=== PATIENT | male | born 1935 | race Caucasian/White ===

== ENCOUNTER 2020-10-01 06:01 | Inpatient (IN) ==
[2020-10-01] MEDS ORDERED: Ringers Solution, Lactated 1,000 ML IVC SCH ×2 (06:30→07:00)
[2020-10-01] MEDS ORDERED: Vancomycin 1,500 MG/265 ML IV.SOLN IVPB ONE (06:30)
[2020-10-01] MEDS ORDERED: Lidocaine -MPF 2% 2 ML VIAL ONE ×2 (06:32→06:59)
[2020-10-01] MEDS ORDERED: Ondansetron 4 MG/2 ML VIAL ONE (06:32)
[2020-10-01] MEDS ORDERED: *HR* Succinylcholine 200 MG/10 ML VIAL IVP ONE (06:32)
[2020-10-01] MEDS ORDERED: *HR* Rocuronium Bromide 50 MG/5 ML VIAL ONE ×3 (06:32→15:23)
[2020-10-01] MEDS ORDERED: Lidocaine HCL 4 ML Topical Solution (Laryng-O-Jet Kit Sterile Pak) TP ONE (06:32)
[2020-10-01] MEDS ORDERED: Heparin 1,000 UNITS/500 mL 1,000 ML ONE (06:36)
[2020-10-01] MEDS ORDERED: Heparin 1,000 UNITS/500 mL 500 ML ONE (06:48)
[2020-10-01] MEDS ORDERED: *HR* FentaNYL (PF) 100 MCG/2 ML VIAL ONE ×3 (06:51→12:19)
[2020-10-01] MEDS ORDERED: *HR* Propofol 200 MG/20 ML VIAL IVP ONE (06:52)
[2020-10-01] MEDS ORDERED: *HR* Vasopressin 20 UNIT/ML VIAL ONE (06:55)
[2020-10-01] MEDS ORDERED: Albumin Human 5% 25.0 GM/500 ML IV.SOLN ONE (06:55)
[2020-10-01] MEDS ORDERED: *HR* Remifentanil 2 MG VIAL IVP ONE (06:59)
[2020-10-01] MEDS ORDERED: *HR* Metoprolol 5 MG/5 ML VIAL IVP PRN (07:00)
[2020-10-01] MEDS ORDERED: *HR* HYDROmorphone (PF) 1 MG/ML SYRINGE IVP PRN (07:00)
[2020-10-01] MEDS ORDERED: Ondansetron 4 MG/2 ML VIAL IVP PRN ×2 (07:00→13:35)
[2020-10-01] MEDS ORDERED: *HR* Phenylephrine 10 MG/ML VIAL ONE (07:05)
[2020-10-01] MEDS ORDERED: CeFAZolin Syr 2,000MG/20 ML 2,000 MG/20 ML SYRINGE IVPB ONE (07:32)
[2020-10-01] MEDS ORDERED: *HR* Norepinephrine 4 MG/4 ML VIAL IVC ONE (07:41)
[2020-10-01] MEDS ORDERED: Norepinephrine 4 MG/254 ML IV.SOLN IVC SCH (07:45)
[2020-10-01] MEDS ORDERED: Vancomycin 1,000 MG, Sodium Chloride IRRigation 1,000 ML IR ONE (07:45)
[2020-10-01] MEDS ORDERED: Vancomycin 1,000 MG VIAL ONE ×2 (08:12→11:31)
[2020-10-01] MEDS ORDERED: NiCARdipine 2.5 MG/10 ML Syringe IVPB ONE (08:20)
[2020-10-01] MEDS ORDERED: EPHEDrine 50 MG/ML VIAL ONE (08:47)
[2020-10-01 09:03] LABS: ABG Base Excess -3 mEq/L (-2 to 3); ABG Chloride 109 mEq/L (98-107); ABG Glucose 149 mg/dL (60-95); ABG HCO3 24 mEq/L (21-27); ABG Ionized Calcium 1.13 mmol/L (1.15-1.35); ABG Oxygen Saturation 98 % (95-98); ABG PCO2 47 mmHg (35-45); ABG PH 7.32 pH Units (7.32-7.45); ABG PO2 113 mmHg (85-104); ABG TCO2 25 mEq/L (20-26)
[2020-10-01] MEDS ORDERED: *HR* Midazolam HCl 2 MG/2 ML VIAL ONE ×4 (10:40→12:20)
[2020-10-01] MEDS ORDERED: EPINEPHrine 1 MG/ML VIAL ONE ×3 (10:54→11:21)
[2020-10-01 11:16] LABS: ABG Base Excess -11 mEq/L (-2 to 3); ABG Chloride 108 mEq/L (98-107); ABG Glucose 433 mg/dL (60-95); ABG HCO3 18 mEq/L (21-27); ABG Oxygen Saturation 100 % (95-98); ABG PCO2 50 mmHg (35-45); ABG PH 7.15 pH Units (7.32-7.45); ABG PO2 257 mmHg (85-104); ABG TCO2 19 mEq/L (20-26)
[2020-10-01 11:45] LABS: ABG Base Excess -8 mEq/L (-2 to 3); ABG Chloride 108 mEq/L (98-107); ABG Glucose 357 mg/dL (60-95); ABG HCO3 22 mEq/L (21-27); ABG Ionized Calcium 1.16 mmol/L (1.15-1.35); ABG Oxygen Saturation 100 % (95-98); ABG PCO2 68 mmHg (35-45); ABG PH 7.11 pH Units (7.32-7.45); ABG PO2 284 mmHg (85-104); ABG TCO2 24 mEq/L (20-26)
[2020-10-01] MEDS ORDERED: Naloxone 0.4 MG/ML INJ IVP PRN (13:35)
[2020-10-01] MEDS ORDERED: *HR* Labetalol 20 MG/4 ML SYRINGE IVP PRN (13:35)
[2020-10-01] MEDS ORDERED: Dextrose Gel 15 GM/37.5 ML TUBE PO PRN ×2 (13:35)
[2020-10-01] MEDS ORDERED: D5% in Water 1,000 ML IVC PRN (13:35)
[2020-10-01] MEDS ORDERED: 0.9 % Sodium Chloride 1,000 ML IVC SCH ×2 (13:35→17:18)
[2020-10-01] MEDS ORDERED: *HR* Dextrose 50 % in Water (Vial) 50 ML VIAL IVP PRN (13:35)
[2020-10-01 13:57] LABS: ABG Base Excess -8 mEq/L (-2 to 3); ABG HCO3 20 mEq/L (21-27); ABG Oxygen Saturation 96 % (95-98); ABG PCO2 50 mmHg (35-45); ABG PH 7.22 pH Units (7.32-7.45); ABG PO2 97 mmHg (85-104); ABG TCO2 22 mEq/L (20-26); Blood Gas VT 650 cc
[2020-10-01] MEDS ORDERED: CeFAZolin 2 GM/120 ML BAG IVPB SCH (14:00)
[2020-10-01] MEDS ORDERED: Artificial Tears SOLN 15 ML BOTTLE BOTH EYES PRN (15:56)
[2020-10-01] MEDS ORDERED: 0.9 % Sodium Chloride 1,000 ML IVC ONE ×2 (15:58→17:17)
[2020-10-01] MEDS ORDERED: Lidocaine Viscous Oral Soln 15 ML SOLUTION ONE (16:00)
[2020-10-01] MEDS: CeFAZolin 2 GM/120 ML BAG IVPB SCH ×2 (16:30→23:44)
[2020-10-01] MEDS: FentaNYL (PF) 1,000 MCG/100 ML IV.SOLN IVC SCH ×2 (16:31→22:07)
[2020-10-01] MEDS: Norepinephrine 4 MG/254 ML IV.SOLN IVC SCH ×2 (16:34→18:52)
[2020-10-01] MEDS: Phenylephrine 10 MG in 0.9 % Sodium Chloride 250 ML IVC SCH ×2 (16:37→19:59)
[2020-10-01 16:43] LABS: Basophils # 0.1 K/mcL (0.0-0.2); Basophils % 0.4 %; Eosinophils % 0.1 %; Hematocrit 54.8 % (37.5-50.1); Hemoglobin 18.3 g/dL (12.9-16.9); Immature Granulocytes % 1.2 % (0-4); Lymphocytes # 1.6 K/mcL (0.6-4.6); Lymphocytes % 8.2 %; Mean Corpuscular HGB Conc 33.4 g/dL (31.6-35.5); Mean Corpuscular Hemoglobin 30.2 pg (28.0-33.3); Mean Corpuscular Volume 90.6 fL (83.0-100.0); Mean Platelet Volume 11.8 fL (9.4-12.4); Monocytes # 1.6 K/mcL (0.0-1.3); Monocytes % 8.5 %; Neutrophils # 15.6 K/mcL (1.6-8.9); Platelet Count 137 K/mcL (140-400); Red Blood Count 6.05 M/mcL (4.19-5.50); Red Cell Distribution Width 14.1 % (11.5-14.5); Segmented Neutrophils % 81.6 %; White Blood Count 19.1 K/mcL (4.3-11.1)
[2020-10-01 16:45] LABS: VBG Ionized Calcium 1.13 mmol/L (1.15-1.35)
[2020-10-01] MEDS: Artificial Tears SOLN 15 ML BOTTLE BOTH EYES SCH ×3 (16:46→23:44)
[2020-10-01 16:50] LABS: INR 1.2; Prothrombin Time 13.5 Seconds (9.4-12.1)
[2020-10-01 16:52] LABS: Activated Partial Thrombo Time 29.3 Seconds (26.0-36.0)
[2020-10-01 17:14] LABS: Albumin/Globulin Ratio 1.6 (1.1-2.2); Bilirubin,Total 0.5 mg/dL (0.3-1.0); Calcium 8.2 mg/dL (8.6-10.3); Globulin 1.9 g/dL (2.4-3.5); Magnesium 1.7 mg/dL (1.6-2.6); Phosphorous 6.7 mg/dL (2.7-4.5); Potassium 5.6 mEq/L (3.5-5.1); Total Protein 4.9 g/dL (6.4-8.9); Troponin I 0.06 ng/mL (< 0.04)
[2020-10-01] MEDS ORDERED: Calcium Gluconate 1gm/50mL 1 GM/50 ML BAG IVPB ONE (17:16)
[2020-10-01] MEDS ORDERED: Dexmedetomidine HCl 400 MCG/100 ML MLS IVC ONE (17:21)
[2020-10-01] MEDS: Dexmedetomidine HCl 400 MCG/100 ML MLS IVC SCH (17:27)
[2020-10-01 17:36] LABS: ABG Base Excess -14 mEq/L (-2 to 3); ABG HCO3 15 mEq/L (21-27); ABG Oxygen Saturation 94 % (95-98); ABG PCO2 42 mmHg (35-45); ABG PH 7.15 pH Units (7.32-7.45); ABG PO2 89 mmHg (85-104); ABG TCO2 16 mEq/L (20-26); Blood Gas VT 550 cc
[2020-10-01] MEDS ORDERED: *HR* Metoprolol 5 MG/5 ML VIAL IVP SCH (18:00)
[2020-10-01] MEDS ORDERED: Famotidine 20 MG/2 ML VIAL IVP SCH (18:00)
[2020-10-01] MEDS: Sodium Bicarbonate 50 MEQ in 0.45 % Sodium Chloride 1,000 ML IVC SCH (18:16)
[2020-10-01] MEDS: Pantoprazole 40 MG VIAL IVP SCH (18:17)
[2020-10-01] MEDS: 0.9 % Sodium Chloride 1,000 ML IVC SCH ×2 (18:34→18:53)
[2020-10-01] MEDS: Insulin LISPRO 300 UNITS/3 ML VIAL SUBQ SCH ×2 (18:44→23:44)
[2020-10-01] MEDS: Chlorhexidine Rinse 15 ML MOUTHWASH MM SCH (19:11)
[2020-10-01 19:46] LABS: Basophils # 0.1 K/mcL (0.0-0.2); Basophils % 0.5 %; Hematocrit 51.1 % (37.5-50.1); Immature Granulocytes % 2.1 % (0-4); Lymphocytes % 5.4 %; Mean Corpuscular HGB Conc 32.7 g/dL (31.6-35.5); Mean Corpuscular Hemoglobin 29.2 pg (28.0-33.3); Mean Corpuscular Volume 89.3 fL (83.0-100.0); Mean Platelet Volume 11.4 fL (9.4-12.4); Monocytes # 1.3 K/mcL (0.0-1.3); Monocytes % 6.9 %; Neutrophils # 16.1 K/mcL (1.6-8.9); Nucleated Red Blood Cells 0.1 /100 WBC (0); Platelet Count 119 K/mcL (140-400); Red Blood Count 5.72 M/mcL (4.19-5.50); Segmented Neutrophils % 85.1 %; White Blood Count 18.9 K/mcL (4.3-11.1)
[2020-10-01 19:47] LABS: Hemoglobin 16.7 g/dL (12.9-16.9)
[2020-10-01 20:00] LABS: ABG Base Excess -9 mEq/L (-2 to 3); ABG HCO3 18 mEq/L (21-27); ABG Oxygen Saturation 95 % (95-98); ABG PCO2 43 mmHg (35-45); ABG PH 7.23 pH Units (7.32-7.45); ABG PO2 92 mmHg (85-104); ABG TCO2 19 mEq/L (20-26); Blood Gas Modality AF; Blood Gas VT 550 cc
[2020-10-01 20:03] LABS: INR 1.2; Prothrombin Time 13.8 Seconds (9.4-12.1)
[2020-10-01 20:06] LABS: Activated Partial Thrombo Time 27.8 Seconds (26.0-36.0)
[2020-10-01 20:33] LABS: Calcium 7.9 mg/dL (8.6-10.3); Potassium 5.3 mEq/L (3.5-5.1); Troponin I 0.07 ng/mL (< 0.04)
[2020-10-01] MEDS ORDERED: Calcium Gluconate 1gm/50mL 1 GM/50 ML BAG IVPB PRN (20:55)
[2020-10-01] MEDS: Norepinephrine 8 MG in 0.9 % Sodium Chloride 250 ML IVC SCH (21:19)
[2020-10-01] MEDS: Calcium Gluconate 1gm/50mL 2 GM/100 ML BAG IVPB PRN (22:07)
[2020-10-02 00:19] LABS: Basophils % 0.2 %; Mean Corpuscular HGB Conc 33.2 g/dL (31.6-35.5); Monocytes % 8.5 %
[2020-10-02 00:21] LABS: Hematocrit 35.8 % (37.5-50.1); Immature Granulocytes % 1.5 % (0-4); Immature Platelets 4.3 % (1.1-6.1); Lymphocytes # 0.9 K/mcL (0.6-4.6); Lymphocytes % 6.6 %; Mean Corpuscular Hemoglobin 29.7 pg (28.0-33.3); Mean Corpuscular Volume 89.3 fL (83.0-100.0); Mean Platelet Volume 11.5 fL (9.4-12.4); Monocytes # 1.2 K/mcL (0.0-1.3); Neutrophils # 11.8 K/mcL (1.6-8.9); Nucleated Red Blood Cells 0.1 /100 WBC (0); Platelet Count 94 K/mcL (140-400); Red Blood Count 4.01 M/mcL (4.19-5.50); Red Cell Distribution Width 13.8 % (11.5-14.5); Segmented Neutrophils % 83.2 %; White Blood Count 14.2 K/mcL (4.3-11.1)
[2020-10-02 00:23] LABS: Hemoglobin 11.9 g/dL (12.9-16.9)
[2020-10-02 00:31] LABS: INR 1.2; Prothrombin Time 13.5 Seconds (9.4-12.1)
[2020-10-02] MEDS: Dexmedetomidine HCl 400 MCG/100 ML MLS IVC SCH ×6 (00:33→23:46)
[2020-10-02 01:07] LABS: ABG Base Excess -8 mEq/L (-2 to 3); ABG HCO3 19 mEq/L (21-27); ABG Oxygen Saturation 95 % (95-98); ABG PCO2 43 mmHg (35-45); ABG PH 7.25 pH Units (7.32-7.45); ABG PO2 85 mmHg (85-104); ABG TCO2 20 mEq/L (20-26); Blood Gas Modality AF; Blood Gas VT 550 cc
[2020-10-02] MEDS: Norepinephrine 8 MG in 0.9 % Sodium Chloride 250 ML IVC SCH ×5 (02:13→22:37)
[2020-10-02] MEDS: Phenylephrine 10 MG in 0.9 % Sodium Chloride 250 ML IVC SCH (02:13)
[2020-10-02 03:17] LABS: Calcium 7.8 mg/dL (8.6-10.3); Potassium 5.7 mEq/L (3.5-5.1)
[2020-10-02] MEDS ORDERED: Insulin Human Regular 10 UNIT in 0.9 % Sodium Chloride 10 ML IV ONE (03:44)
[2020-10-02] MEDS ORDERED: *HR* Dextrose 50 % in Water (Vial) 50 ML VIAL IVP ONE (03:48)
[2020-10-02] MEDS ORDERED: Albuterol Neb 7.5 MG, Sodium Chloride for inhalation 12 ML IH ONE (03:50)
[2020-10-02 04:12] LABS: Basophils # 0.1 K/mcL (0.0-0.2); Basophils % 0.3 %; Hematocrit 48.1 % (37.5-50.1); Immature Granulocytes % 1.4 % (0-4); Lymphocytes # 1.4 K/mcL (0.6-4.6); Lymphocytes % 7.4 %; Mean Corpuscular HGB Conc 33.3 g/dL (31.6-35.5); Mean Corpuscular Hemoglobin 28.9 pg (28.0-33.3); Mean Platelet Volume 11.7 fL (9.4-12.4); Monocytes # 1.7 K/mcL (0.0-1.3); Monocytes % 8.9 %; Neutrophils # 15.7 K/mcL (1.6-8.9); Platelet Count 138 K/mcL (140-400); Red Blood Count 5.53 M/mcL (4.19-5.50); Red Cell Distribution Width 14.1 % (11.5-14.5); White Blood Count 19.1 K/mcL (4.3-11.1)
[2020-10-02 04:18] LABS: VBG Ionized Calcium 1.04 mmol/L (1.15-1.35)
[2020-10-02 04:22] LABS: INR 1.1; Prothrombin Time 13.1 Seconds (9.4-12.1)
[2020-10-02 04:24] LABS: Activated Partial Thrombo Time 26.7 Seconds (26.0-36.0)
[2020-10-02 04:30] LABS: Calcium 7.8 mg/dL (8.6-10.3); Potassium 5.7 mEq/L (3.5-5.1)
[2020-10-02] MEDS: Sodium Bicarbonate 50 MEQ in 0.45 % Sodium Chloride 1,000 ML IVC SCH (04:30)
[2020-10-02] MEDS: Calcium Gluconate 1gm/50mL 2 GM/100 ML BAG IVPB PRN (04:30)
[2020-10-02] MEDS: Artificial Tears SOLN 15 ML BOTTLE BOTH EYES SCH ×6 (04:42→23:50)
[2020-10-02 05:06] LABS: ABG Base Excess -8 mEq/L (-2 to 3); ABG HCO3 19 mEq/L (21-27); ABG Oxygen Saturation 94 % (95-98); ABG PCO2 42 mmHg (35-45); ABG PH 7.26 pH Units (7.32-7.45); ABG PO2 81 mmHg (85-104); ABG TCO2 20 mEq/L (20-26); Blood Gas Modality AF; Blood Gas VT 550 cc
[2020-10-02] MEDS: Pantoprazole 40 MG VIAL IVP SCH ×2 (05:38→17:57)
[2020-10-02] MEDS: Insulin LISPRO 300 UNITS/3 ML VIAL SUBQ SCH ×4 (05:39→23:51)
[2020-10-02 05:46] LABS: Magnesium 1.5 mg/dL (1.6-2.6)
[2020-10-02] MEDS ORDERED: Albuterol 2.5 MG/3 ML NEBULIZER ONE (05:49)
[2020-10-02 05:54] LABS: Troponin I 0.13 ng/mL (< 0.04)
[2020-10-02] MEDS: FentaNYL (PF) 1,000 MCG/100 ML IV.SOLN IVC SCH ×3 (06:11→20:23)
[2020-10-02] MEDS: Chlorhexidine Rinse 15 ML MOUTHWASH MM SCH ×2 (07:27→20:16)
[2020-10-02] MEDS: Sodium Bicarbonate 150 MEQ in D5% in Water 1,000 ML IVC SCH ×2 (08:27→17:57)
[2020-10-02 08:42] LABS: Basophils # 0.1 K/mcL (0.0-0.2); Basophils % 0.2 %; Hematocrit 46.9 % (37.5-50.1); Hemoglobin 15.5 g/dL (12.9-16.9); Lymphocytes # 1.7 K/mcL (0.6-4.6); Lymphocytes % 8.2 %; Mean Corpuscular Hemoglobin 29.9 pg (28.0-33.3); Mean Corpuscular Volume 90.5 fL (83.0-100.0); Mean Platelet Volume 11.1 fL (9.4-12.4); Monocytes # 2.1 K/mcL (0.0-1.3); Monocytes % 10.4 %; Neutrophils # 16.4 K/mcL (1.6-8.9); Nucleated Red Blood Cells 0.1 /100 WBC (0); Platelet Count 126 K/mcL (140-400); Red Blood Count 5.18 M/mcL (4.19-5.50); Red Cell Distribution Width 14.3 % (11.5-14.5); Segmented Neutrophils % 80.2 %; White Blood Count 20.5 K/mcL (4.3-11.1)
[2020-10-02 08:45] LABS: INR 1.1; Prothrombin Time 12.9 Seconds (9.4-12.1)
[2020-10-02 08:47] LABS: Activated Partial Thrombo Time 27.2 Seconds (26.0-36.0)
[2020-10-02 08:57] LABS: Magnesium 1.9 mg/dL (1.6-2.6); Potassium 4.7 mEq/L (3.5-5.1)
[2020-10-02] MEDS: SODIUM ZIRCONIUM CYCLOSILICATE 5 GM POWD.PACK PO SCH (11:13)
[2020-10-02 12:28] LABS: Basophils % 0.2 %; Hematocrit 44.1 % (37.5-50.1); Hemoglobin 14.2 g/dL (12.9-16.9); Lymphocytes # 1.6 K/mcL (0.6-4.6); Mean Corpuscular HGB Conc 32.2 g/dL (31.6-35.5); Mean Corpuscular Hemoglobin 29.1 pg (28.0-33.3); Mean Corpuscular Volume 90.4 fL (83.0-100.0); Mean Platelet Volume 11.4 fL (9.4-12.4); Monocytes # 1.8 K/mcL (0.0-1.3); Monocytes % 9.3 %; Neutrophils # 15.9 K/mcL (1.6-8.9); Platelet Count 126 K/mcL (140-400); Red Blood Count 4.88 M/mcL (4.19-5.50); Red Cell Distribution Width 14.4 % (11.5-14.5); Segmented Neutrophils % 81.5 %; White Blood Count 19.5 K/mcL (4.3-11.1)
[2020-10-02 12:36] LABS: VBG Ionized Calcium 1.09 mmol/L (1.15-1.35)
[2020-10-02 12:47] LABS: Sodium, Urine 52.6 mEq/L
[2020-10-02 12:48] LABS: Calcium 7.7 mg/dL (8.6-10.3); Magnesium 1.7 mg/dL (1.6-2.6); Phosphorous 6.5 mg/dL (2.7-4.5); Potassium 4.8 mEq/L (3.5-5.1)
[2020-10-02] MEDS: *HR* Midazolam HCl 2 MG/2 ML VIAL IVP PRN ×3 (16:04→23:46)
[2020-10-02] MEDS: *HR* Heparin 5,000 UNIT/ML VIAL SQ SCH (17:57)
[2020-10-02] MEDS ORDERED: *HR* Heparin 5,000 UNIT/ML VIAL SQ SCH (18:00)
[2020-10-02 18:48] LABS: Calcium 7.6 mg/dL (8.6-10.3); Magnesium 1.7 mg/dL (1.6-2.6); Potassium 4.9 mEq/L (3.5-5.1)
[2020-10-02 22:04] LABS: Calcium 7.3 mg/dL (8.6-10.3); Magnesium 1.8 mg/dL (1.6-2.6); Potassium 4.6 mEq/L (3.5-5.1)
[2020-10-03 03:48] LABS: VBG Ionized Calcium 1.01 mmol/L (1.15-1.35)
[2020-10-03 03:54] LABS: Eosinophils % 0.1 %
[2020-10-03 03:56] LABS: Basophils % 0.3 %; Hematocrit 36.6 % (37.5-50.1); Immature Granulocytes % 0.7 % (0-4); Immature Platelets 5.4 % (1.1-6.1); Lymphocytes # 1.5 K/mcL (0.6-4.6); Lymphocytes % 9.9 %; Mean Corpuscular HGB Conc 32.8 g/dL (31.6-35.5); Mean Corpuscular Hemoglobin 29.3 pg (28.0-33.3); Mean Corpuscular Volume 89.3 fL (83.0-100.0); Mean Platelet Volume 11.4 fL (9.4-12.4); Monocytes # 1.3 K/mcL (0.0-1.3); Neutrophils # 11.9 K/mcL (1.6-8.9); Red Cell Distribution Width 14.3 % (11.5-14.5); White Blood Count 14.9 K/mcL (4.3-11.1)
[2020-10-03] MEDS: *HR* Midazolam HCl 2 MG/2 ML VIAL IVP PRN ×5 (04:06→23:17)
[2020-10-03] MEDS: FentaNYL (PF) 1,000 MCG/100 ML IV.SOLN IVC SCH ×4 (04:06→19:29)
[2020-10-03] MEDS: Sodium Bicarbonate 150 MEQ in D5% in Water 1,000 ML IVC SCH ×2 (04:07→12:38)
[2020-10-03] MEDS: Artificial Tears SOLN 15 ML BOTTLE BOTH EYES SCH ×6 (04:08→23:18)
[2020-10-03 04:09] LABS: Calcium 7.2 mg/dL (8.6-10.3); Magnesium 1.7 mg/dL (1.6-2.6); Potassium 4.6 mEq/L (3.5-5.1)
[2020-10-03 05:03] LABS: Platelet Count 96 K/mcL (140-400)
[2020-10-03] MEDS: Insulin LISPRO 300 UNITS/3 ML VIAL SUBQ SCH ×4 (05:22→23:18)
[2020-10-03] MEDS: Pantoprazole 40 MG VIAL IVP SCH ×2 (05:26→17:48)
[2020-10-03] MEDS: *HR* Heparin 5,000 UNIT/ML VIAL SQ SCH ×2 (05:32→17:47)
[2020-10-03 05:59] LABS: ABG Base Excess -2 mEq/L (-2 to 3); ABG HCO3 25 mEq/L (21-27); ABG Oxygen Saturation 87 % (95-98); ABG PCO2 50 mmHg (35-45); ABG PO2 60 mmHg (85-104); ABG TCO2 26 mEq/L (20-26); Blood Gas Modality ASSIST CONTROL; Blood Gas VT 550 cc
[2020-10-03] MEDS: Calcium Gluconate 1gm/50mL 2 GM/100 ML BAG IVPB PRN ×2 (06:08→18:02)
[2020-10-03] MEDS: Dexmedetomidine HCl 400 MCG/100 ML MLS IVC SCH ×4 (06:09→21:20)
[2020-10-03] MEDS: Chlorhexidine Rinse 15 ML MOUTHWASH MM SCH ×2 (08:17→21:20)
[2020-10-03] MEDS: SODIUM ZIRCONIUM CYCLOSILICATE 5 GM POWD.PACK PO SCH (08:17)
[2020-10-03] MEDS: Norepinephrine 8 MG in 0.9 % Sodium Chloride 250 ML IVC SCH (10:02)
[2020-10-03 10:07] LABS: Hematocrit 33.9 % (37.5-50.1); Hemoglobin 11.3 g/dL (12.9-16.9)
[2020-10-03 15:54] LABS: VBG Ionized Calcium 1.05 mmol/L (1.15-1.35)
[2020-10-03 16:14] LABS: Calcium 7.6 mg/dL (8.6-10.3); Potassium 4.4 mEq/L (3.5-5.1)
[2020-10-04] MEDS: Dexmedetomidine HCl 400 MCG/100 ML MLS IVC SCH ×2 (01:09→05:58)
[2020-10-04] MEDS: FentaNYL (PF) 1,000 MCG/100 ML IV.SOLN IVC SCH (02:17)
[2020-10-04] MEDS: Artificial Tears SOLN 15 ML BOTTLE BOTH EYES SCH ×5 (03:34→20:54)
[2020-10-04] MEDS: Norepinephrine 8 MG in 0.9 % Sodium Chloride 250 ML IVC SCH (03:34)
[2020-10-04] MEDS: Sodium Bicarbonate 150 MEQ in D5% in Water 1,000 ML IVC SCH ×2 (03:34→18:31)
[2020-10-04 03:41] LABS: Eosinophils % 0.6 %; Hematocrit 32.2 % (37.5-50.1); Hemoglobin 10.7 g/dL (12.9-16.9); Mean Corpuscular HGB Conc 33.2 g/dL (31.6-35.5); Mean Corpuscular Hemoglobin 29.3 pg (28.0-33.3); Mean Corpuscular Volume 88.2 fL (83.0-100.0); Mean Platelet Volume 11.5 fL (9.4-12.4); Red Blood Count 3.65 M/mcL (4.19-5.50)
[2020-10-04 03:43] LABS: Basophils % 0.3 %; Eosinophils # 0.1 K/mcL (0.0-0.6); Immature Platelets 5.5 % (1.1-6.1); Lymphocytes # 1.5 K/mcL (0.6-4.6); Neutrophils # 9.9 K/mcL (1.6-8.9); Red Cell Distribution Width 14.2 % (11.5-14.5); Segmented Neutrophils % 78.1 %; White Blood Count 12.7 K/mcL (4.3-11.1)
[2020-10-04 03:44] LABS: Platelet Count 92 K/mcL (140-400)
[2020-10-04 03:46] LABS: VBG Ionized Calcium 1.01 mmol/L (1.15-1.35)
[2020-10-04] MEDS: *HR* Midazolam HCl 2 MG/2 ML VIAL IVP PRN (03:52)
[2020-10-04 03:59] LABS: Calcium 7.6 mg/dL (8.6-10.3); Potassium 4.5 mEq/L (3.5-5.1)
[2020-10-04] MEDS: Calcium Gluconate 1gm/50mL 2 GM/100 ML BAG IVPB PRN ×4 (04:27→22:41)
[2020-10-04 04:46] LABS: Magnesium 2.1 mg/dL (1.6-2.6)
[2020-10-04 04:57] LABS: ABG Base Excess 1 mEq/L (-2 to 3); ABG HCO3 26 mEq/L (21-27); ABG Oxygen Saturation 86 % (95-98); ABG PCO2 42 mmHg (35-45); ABG PO2 51 mmHg (85-104); ABG TCO2 27 mEq/L (20-26); Blood Gas Modality ASSIST CONTROL; Blood Gas VT 550 cc
[2020-10-04] MEDS: Pantoprazole 40 MG VIAL IVP SCH ×2 (05:56→17:32)
[2020-10-04] MEDS: *HR* Heparin 5,000 UNIT/ML VIAL SQ SCH ×2 (05:56→17:32)
[2020-10-04] MEDS: Insulin LISPRO 300 UNITS/3 ML VIAL SUBQ SCH ×3 (06:00→17:43)
[2020-10-04] MEDS: Chlorhexidine Rinse 15 ML MOUTHWASH MM SCH ×2 (08:40→20:52)
[2020-10-04 11:48] LABS: VBG Ionized Calcium 1.03 mmol/L (1.15-1.35)
[2020-10-04 12:07] LABS: Calcium 7.8 mg/dL (8.6-10.3); Potassium 4.8 mEq/L (3.5-5.1)
[2020-10-04] MEDS: *HR* Metoprolol 5 MG/5 ML VIAL IVP PRN ×2 (12:08→20:53)
[2020-10-04] MEDS: DilTIAZem 50 MG/50 ML IV.SOLN IVC SCH ×4 (12:16→22:38)
[2020-10-04 13:37] LABS: Magnesium 2.1 mg/dL (1.6-2.6)
[2020-10-04] MEDS ORDERED: *HR* Metoprolol 5 MG/5 ML VIAL IVP ONE (15:07)
[2020-10-04] MEDS: Phenylephrine 10 MG in 0.9 % Sodium Chloride 250 ML IVC SCH (17:49)
[2020-10-04 20:57] LABS: VBG Ionized Calcium 1.04 mmol/L (1.15-1.35)
[2020-10-04 21:28] LABS: Alanine Aminotransferase < 3 Units/L (7-52); Albumin 2.2 g/dL (3.5-5.7); Alkaline Phosphatase 65 Units/L (34-104); Aspartate Amino Transferase 45 Units/L (13-39); BUN/Creatinine Ratio 10 (6-26); Bilirubin,Total 0.4 mg/dL (0.3-1.0); Blood Urea Nitrogen 73 mg/dL (8-23); Calcium 7.9 mg/dL (8.6-10.3); Carbon Dioxide 30 mEq/L (23-29); Chloride 96 mEq/L (98-107); Globulin 2.1 g/dL (2.4-3.5); Glucose 180 mg/dL (70-105); Magnesium 2.1 mg/dL (1.6-2.6); Osmolality,Calculated 312 (280-300); Potassium 4.8 mEq/L (3.5-5.1); Sodium 138 mEq/L (136-145); Total Protein 4.3 g/dL (6.4-8.9); eGFR For African Americans 9 (> 60); eGFR For Non-African Americans 7 (> 60)
[2020-10-05] MEDS: Artificial Tears SOLN 15 ML BOTTLE BOTH EYES SCH ×3 (00:27→08:26)
[2020-10-05] MEDS: Insulin LISPRO 300 UNITS/3 ML VIAL SUBQ SCH ×5 (00:32→20:00)
[2020-10-05] MEDS: DilTIAZem 50 MG/50 ML IV.SOLN IVC SCH ×6 (02:16→22:19)
[2020-10-05] MEDS: Dexmedetomidine HCl 400 MCG/100 ML MLS IVC SCH (04:11)
[2020-10-05 05:08] LABS: Basophils % 0.2 %; Eosinophils # 0.1 K/mcL (0.0-0.6); Eosinophils % 0.4 %; Hematocrit 30.6 % (37.5-50.1); Hemoglobin 10.2 g/dL (12.9-16.9); Immature Granulocytes % 0.6 % (0-4); Lymphocytes % 8.1 %; Mean Corpuscular HGB Conc 33.3 g/dL (31.6-35.5); Mean Platelet Volume 11.4 fL (9.4-12.4); Monocytes # 1.1 K/mcL (0.0-1.3); Monocytes % 8.8 %; Platelet Count 112 K/mcL (140-400); Segmented Neutrophils % 81.9 %; White Blood Count 12.2 K/mcL (4.3-11.1)
[2020-10-05 05:11] LABS: VBG Ionized Calcium 1.05 mmol/L (1.15-1.35)
[2020-10-05 05:19] LABS: INR 1.2; Prothrombin Time 14.2 Seconds (9.4-12.1)
[2020-10-05 05:25] LABS: Magnesium 2.2 mg/dL (1.6-2.6); Phosphorous 8.2 mg/dL (2.7-4.5); Potassium 4.6 mEq/L (3.5-5.1)
[2020-10-05] MEDS: Calcium Gluconate 1gm/50mL 2 GM/100 ML BAG IVPB PRN (06:40)
[2020-10-05] MEDS: *HR* Heparin 5,000 UNIT/ML VIAL SQ SCH ×2 (06:42→17:22)
[2020-10-05] MEDS: Pantoprazole 40 MG VIAL IVP SCH ×2 (06:43→17:23)
[2020-10-05] MEDS ORDERED: Heparin 1,000 UNITS/500 mL 500 ML ONE (08:07)
[2020-10-05] MEDS ORDERED: 0.9 % Sodium Chloride 250 ML IVC PRN (08:16)
[2020-10-05] MEDS ORDERED: *HR* Heparin 10,000 UNIT/10 ML VIAL IV PRN (08:16)
[2020-10-05] MEDS: Chlorhexidine Rinse 15 ML MOUTHWASH MM SCH (08:26)
[2020-10-05] MEDS ORDERED: 0.9 % Sodium Chloride 1,000 ML PRIME SCH (08:30)
[2020-10-05] MEDS ORDERED: *HR* Heparin 5,000 UNIT/ML VIAL ONE (08:35)
[2020-10-05] MEDS ORDERED: D10% in Water 500 ML IVC PRN (10:56)
[2020-10-05 11:43] LABS: Hepatitis B Surface Antibody < 3.10 mIU/mL
[2020-10-05 11:54] LABS: Hepatitis B Surface Antigen Nonreactive (Nonreactive)
[2020-10-05] MEDS ORDERED: Bisacodyl 10 MG RECTAL SUPPOSITORY RC ONE (13:43)
[2020-10-05] MEDS: *HR* Metoprolol 5 MG/5 ML VIAL IVP PRN (14:48)
[2020-10-05] MEDS: Phenylephrine 10 MG in 0.9 % Sodium Chloride 250 ML IVC SCH (15:33)
[2020-10-05] MEDS ORDERED: Clinimix 5%-20% SOLUTION 2,000 ML with MVI, adult with vitamin K 10 ML, Sodium Acetat... IVC SCH (17:00)
[2020-10-05] MEDS: Metoprolol 100 MG TABLET PO SCH (19:39)
[2020-10-05] MEDS: lisinopriL 20 MG TABLET PO SCH (19:39)
[2020-10-06] MEDS: Insulin LISPRO 300 UNITS/3 ML VIAL SUBQ SCH ×7 (00:56→23:17)
[2020-10-06 05:11] LABS: Hematocrit 29.8 % (37.5-50.1); Hemoglobin 9.8 g/dL (12.9-16.9); Mean Corpuscular HGB Conc 32.9 g/dL (31.6-35.5); Mean Corpuscular Hemoglobin 29.7 pg (28.0-33.3); Mean Corpuscular Volume 90.3 fL (83.0-100.0); Mean Platelet Volume 11.2 fL (9.4-12.4); Platelet Count 140 K/mcL (140-400); Red Cell Distribution Width 14.1 % (11.5-14.5); White Blood Count 13.3 K/mcL (4.3-11.1)
[2020-10-06 05:17] LABS: Calcium 7.7 mg/dL (8.6-10.3); Magnesium 2.5 mg/dL (1.6-2.6); Phosphorous 8.1 mg/dL (2.7-4.5); Potassium 4.6 mEq/L (3.5-5.1)
[2020-10-06] MEDS: Pantoprazole 40 MG VIAL IVP SCH ×2 (06:07→16:51)
[2020-10-06] MEDS: *HR* Heparin 5,000 UNIT/ML VIAL SQ SCH ×2 (06:07→16:52)
[2020-10-06] MEDS: DilTIAZem 50 MG/50 ML IV.SOLN IVC SCH (06:09)
[2020-10-06] MEDS ORDERED: 0.9 % Sodium Chloride 250 ML IVC PRN ×3 (07:10→17:01)
[2020-10-06] MEDS ORDERED: *HR* Heparin 10,000 UNIT/10 ML VIAL IV PRN (07:10)
[2020-10-06] MEDS ORDERED: 0.9 % Sodium Chloride 1,000 ML PRIME SCH (07:15)
[2020-10-06 07:47] LABS: Alpha 2 Globulin (PEP) 0.54 g/dL (0.48-1.05); Beta Globulin (PEP) 0.51 g/dL (0.48-1.10)
[2020-10-06] MEDS: Metoprolol 100 MG TABLET PO SCH ×2 (09:20→20:15)
[2020-10-06 12:38] LABS: IFE Reflexed IFE Done; Immunoglobulin A 119 mg/dL (68-408); Immunoglobulin G 477 mg/dL (768-1632); Immunoglobulin M 24 mg/dL (35-263)
[2020-10-06] MEDS: lisinopriL 20 MG TABLET PO SCH ×2 (14:40→20:16)
[2020-10-06] MEDS ORDERED: Calcium Acetate 667 MG CAPSULE PO SCH (17:00)
[2020-10-06] MEDS ORDERED: Ondansetron 4 MG/2 ML VIAL IVP PRN (17:01)
[2020-10-06] MEDS ORDERED: D10% in Water 500 ML IVC PRN (17:01)
[2020-10-06] MEDS ORDERED: Naloxone 0.4 MG/ML INJ IVP PRN (17:01)
[2020-10-06] MEDS ORDERED: Calcium Gluconate 1gm/50mL 2 GM/100 ML BAG IVPB PRN (17:01)
[2020-10-06] MEDS ORDERED: Dextrose Gel 15 GM/37.5 ML TUBE PO PRN ×2 (17:01)
[2020-10-06] MEDS ORDERED: *HR* Dextrose 50 % in Water (Vial) 50 ML VIAL IVP PRN (17:01)
[2020-10-06] MEDS ORDERED: D5% in Water 1,000 ML IVC PRN (17:01)
[2020-10-06] MEDS: Dexmedetomidine HCl 400 MCG/100 ML MLS IVC SCH (18:03)
[2020-10-06] MEDS: Sodium Bicarbonate 150 MEQ in D5% in Water 1,000 ML IVC SCH ×4 (19:26→19:28)
[2020-10-06] MEDS ORDERED: Insulin DETEMIR 100 UNIT/ML X5UNITS SUBQ SCH (21:00)
[2020-10-06] MEDS: Insulin DETEMIR 100 UNIT/ML X5UNITS SUBQ SCH (21:46)
[2020-10-07] MEDS: Insulin LISPRO 300 UNITS/3 ML VIAL SUBQ SCH ×5 (03:39→21:00)
[2020-10-07 03:53] LABS: Hematocrit 31.5 % (37.5-50.1); Hemoglobin 10.2 g/dL (12.9-16.9); Mean Corpuscular HGB Conc 32.4 g/dL (31.6-35.5); Mean Corpuscular Hemoglobin 29.2 pg (28.0-33.3); Mean Corpuscular Volume 90.3 fL (83.0-100.0); Platelet Count 179 K/mcL (140-400); Red Blood Count 3.49 M/mcL (4.19-5.50); Red Cell Distribution Width 13.8 % (11.5-14.5); White Blood Count 13.7 K/mcL (4.3-11.1)
[2020-10-07 04:05] LABS: VBG Ionized Calcium 1.04 mmol/L (1.15-1.35)
[2020-10-07 04:15] LABS: Magnesium 2.3 mg/dL (1.6-2.6); Phosphorous 7.7 mg/dL (2.7-4.5); Potassium 4.4 mEq/L (3.5-5.1)
[2020-10-07] MEDS ORDERED: 0.9 % Sodium Chloride 250 ML IVC PRN (07:24)
[2020-10-07] MEDS ORDERED: *HR* Heparin 10,000 UNIT/10 ML VIAL IV PRN (07:24)
[2020-10-07] MEDS: *HR* Glimepiride 2 MG TABLET PO SCH (07:58)
[2020-10-07] MEDS: Metoprolol 100 MG TABLET PO SCH ×2 (07:59→21:04)
[2020-10-07] MEDS: Calcium Acetate 667 MG CAPSULE PO SCH ×3 (07:59→16:20)
[2020-10-07] MEDS: Magnesium Oxide 400 MG TABLET PO SCH (07:59)
[2020-10-07] MEDS ORDERED: *HR* Glimepiride 2 MG TABLET PO SCH (09:00)
[2020-10-07] MEDS ORDERED: Magnesium Oxide 400 MG TABLET PO SCH (09:00)
[2020-10-07] MEDS ORDERED: amLODIPine 5 MG TABLET PO SCH (09:00)
[2020-10-07] MEDS: Dexmedetomidine HCl 400 MCG/100 ML MLS IVC SCH (12:30)
[2020-10-07] MEDS: lisinopriL 20 MG TABLET PO SCH ×2 (13:13→21:04)
[2020-10-07] MEDS: amLODIPine 5 MG TABLET PO SCH (13:13)
[2020-10-07] MEDS ORDERED: *HR* Metoprolol 5 MG/5 ML VIAL IVP ONE (17:52)
[2020-10-07] MEDS: Insulin DETEMIR 100 UNIT/ML X5UNITS SUBQ SCH (21:00)
[2020-10-08] MEDS: Insulin LISPRO 300 UNITS/3 ML VIAL SUBQ SCH ×6 (00:27→23:01)
[2020-10-08] MEDS ORDERED: *HR* Metoprolol 5 MG/5 ML VIAL IVP ONE ×2 (03:08→15:22)
[2020-10-08 05:31] LABS: Basophils # 0.1 K/mcL (0.0-0.2); Basophils % 0.3 %; Eosinophils # 0.2 K/mcL (0.0-0.6); Eosinophils % 1.4 %; Hematocrit 33.4 % (37.5-50.1); Hemoglobin 11.1 g/dL (12.9-16.9); Immature Granulocytes % 2.2 % (0-4); Lymphocytes # 1.4 K/mcL (0.6-4.6); Lymphocytes % 9.9 %; Mean Corpuscular HGB Conc 33.2 g/dL (31.6-35.5); Mean Corpuscular Hemoglobin 29.6 pg (28.0-33.3); Mean Corpuscular Volume 89.1 fL (83.0-100.0); Mean Platelet Volume 11.2 fL (9.4-12.4); Monocytes # 1.6 K/mcL (0.0-1.3); Monocytes % 11.3 %; Neutrophils # 10.8 K/mcL (1.6-8.9); Platelet Count 203 K/mcL (140-400); Red Blood Count 3.75 M/mcL (4.19-5.50); Red Cell Distribution Width 13.4 % (11.5-14.5); Segmented Neutrophils % 74.9 %; White Blood Count 14.4 K/mcL (4.3-11.1)
[2020-10-08 05:35] LABS: Calcium 7.9 mg/dL (8.6-10.3)
[2020-10-08] MEDS: Dexmedetomidine HCl 400 MCG/100 ML MLS IVC SCH (07:54)
[2020-10-08] MEDS ORDERED: Lidocaine/EPI 1:100k 1% 50 ML VIAL ONE (08:08)
[2020-10-08] MEDS ORDERED: Heparin 1,000 UNITS/500 mL 500 ML ONE (08:08)
[2020-10-08] MEDS: DilTIAZem CD (24hr) 120 MG CAP.ER.24H PO SCH (08:19)
[2020-10-08] MEDS: Calcium Acetate 667 MG CAPSULE PO SCH ×3 (08:20→17:32)
[2020-10-08] MEDS: Metoprolol 100 MG TABLET PO SCH ×2 (08:20→21:36)
[2020-10-08] MEDS: lisinopriL 20 MG TABLET PO SCH ×2 (08:20→21:38)
[2020-10-08] MEDS: *HR* Glimepiride 2 MG TABLET PO SCH (08:21)
[2020-10-08] MEDS: Magnesium Oxide 400 MG TABLET PO SCH (08:21)
[2020-10-08] MEDS: amLODIPine 5 MG TABLET PO SCH (08:22)
[2020-10-08] MEDS ORDERED: *HR* Midazolam HCl 2 MG/2 ML VIAL IVP ONE (08:44)
[2020-10-08] MEDS ORDERED: Clindamycin 600 MG/50 ML 600 MG/50 ML IV.SOLN IVPB ONE (08:44)
[2020-10-08] MEDS ORDERED: *HR* FentaNYL (PF) 100 MCG/2 ML VIAL IVP ONE (08:44)
[2020-10-08] MEDS ORDERED: 0.9 % Sodium Chloride 500 ML ONE (08:59)
[2020-10-08] MEDS ORDERED: *HR* Heparin 5,000 UNIT/ML VIAL ONE (09:07)
[2020-10-08] MEDS: Insulin DETEMIR 100 UNIT/ML X5UNITS SUBQ SCH (21:39)
[2020-10-09 01:46] LABS: Basophils % 0.3 %; Eosinophils # 0.3 K/mcL (0.0-0.6); Eosinophils % 1.9 %; Hematocrit 31.9 % (37.5-50.1); Hemoglobin 10.1 g/dL (12.9-16.9); Immature Granulocytes % 2.8 % (0-4); Lymphocytes # 1.1 K/mcL (0.6-4.6); Lymphocytes % 8.4 %; Mean Corpuscular HGB Conc 31.7 g/dL (31.6-35.5); Mean Corpuscular Hemoglobin 28.8 pg (28.0-33.3); Mean Corpuscular Volume 90.9 fL (83.0-100.0); Mean Platelet Volume 11.3 fL (9.4-12.4); Monocytes # 1.3 K/mcL (0.0-1.3); Monocytes % 10.2 %; Neutrophils # 10.1 K/mcL (1.6-8.9); Platelet Count 247 K/mcL (140-400); Red Blood Count 3.51 M/mcL (4.19-5.50); Red Cell Distribution Width 13.4 % (11.5-14.5); Segmented Neutrophils % 76.4 %; White Blood Count 13.2 K/mcL (4.3-11.1)
[2020-10-09 02:08] LABS: Calcium 7.6 mg/dL (8.6-10.3)
[2020-10-09] MEDS: Insulin LISPRO 300 UNITS/3 ML VIAL SUBQ SCH ×7 (02:23→20:20)
[2020-10-09] MEDS ORDERED: 0.9 % Sodium Chloride 2,000 ML ONE (07:03)
[2020-10-09] MEDS: Dexmedetomidine HCl 400 MCG/100 ML MLS IVC SCH (07:36)
[2020-10-09] MEDS ORDERED: *HR* Heparin 10,000 UNIT/10 ML VIAL IV PRN (07:38)
[2020-10-09] MEDS ORDERED: 0.9 % Sodium Chloride 250 ML IVC PRN (07:38)
[2020-10-09] MEDS ORDERED: 0.9 % Sodium Chloride 1,000 ML PRIME SCH (07:45)
[2020-10-09] MEDS: Metoprolol 100 MG TABLET PO SCH ×2 (07:55→20:30)
[2020-10-09] MEDS: lisinopriL 20 MG TABLET PO SCH ×2 (07:55→20:29)
[2020-10-09] MEDS: DilTIAZem CD (24hr) 120 MG CAP.ER.24H PO SCH (07:56)
[2020-10-09] MEDS: Magnesium Oxide 400 MG TABLET PO SCH (07:56)
[2020-10-09] MEDS: Calcium Acetate 667 MG CAPSULE PO SCH ×3 (07:57→17:06)
[2020-10-09] MEDS: amLODIPine 5 MG TABLET PO SCH (07:57)
[2020-10-09] MEDS: *HR* Glimepiride 2 MG TABLET PO SCH (07:57)
[2020-10-09] MEDS: Insulin DETEMIR 100 UNIT/ML X5UNITS SUBQ SCH (20:28)
[2020-10-10] MEDS: Dexmedetomidine HCl 400 MCG/100 ML MLS IVC SCH ×2 (00:20→16:02)
[2020-10-10] MEDS: Insulin LISPRO 300 UNITS/3 ML VIAL SUBQ SCH ×6 (00:21→20:37)
[2020-10-10 01:00] LABS: Basophils # 0.1 K/mcL (0.0-0.2); Basophils % 0.4 %; Eosinophils # 0.2 K/mcL (0.0-0.6); Hematocrit 29.8 % (37.5-50.1); Hemoglobin 9.9 g/dL (12.9-16.9); Immature Granulocytes % 2.6 % (0-4); Lymphocytes # 1.2 K/mcL (0.6-4.6); Lymphocytes % 7.2 %; Mean Corpuscular HGB Conc 33.2 g/dL (31.6-35.5); Mean Corpuscular Hemoglobin 29.7 pg (28.0-33.3); Mean Corpuscular Volume 89.5 fL (83.0-100.0); Mean Platelet Volume 11.7 fL (9.4-12.4); Monocytes # 1.3 K/mcL (0.0-1.3); Monocytes % 8.1 %; Neutrophils # 13.1 K/mcL (1.6-8.9); Platelet Count 232 K/mcL (140-400); Red Blood Count 3.33 M/mcL (4.19-5.50); Red Cell Distribution Width 13.3 % (11.5-14.5); Segmented Neutrophils % 80.7 %; White Blood Count 16.3 K/mcL (4.3-11.1)
[2020-10-10 05:55] LABS: Calcium 8.1 mg/dL (8.6-10.3); Potassium 4.1 mEq/L (3.5-5.1)
[2020-10-10] MEDS ORDERED: *HR* Heparin 10,000 UNIT/10 ML VIAL IV PRN (08:21)
[2020-10-10] MEDS ORDERED: 0.9 % Sodium Chloride 250 ML IVC PRN (08:21)
[2020-10-10] MEDS: Calcium Acetate 667 MG CAPSULE PO SCH ×3 (08:31→18:09)
[2020-10-10] MEDS: Pantoprazole 40 MG VIAL IVP SCH (08:32)
[2020-10-10 12:03] LABS: Hepatitis B Surface Antigen Nonreactive (Nonreactive)
[2020-10-10] MEDS ORDERED: Cefepime HCl 2,000 MG in Water for inj. (sterile) 20 ML IVP SCH (12:07)
[2020-10-10] MEDS: Magnesium Oxide 400 MG TABLET PO SCH (12:22)
[2020-10-10] MEDS: DilTIAZem CD (24hr) 120 MG CAP.ER.24H PO SCH (12:23)
[2020-10-10] MEDS: *HR* Glimepiride 2 MG TABLET PO SCH (12:23)
[2020-10-10] MEDS: Metoprolol 100 MG TABLET PO SCH ×2 (12:23→20:37)
[2020-10-10] MEDS: lisinopriL 20 MG TABLET PO SCH ×2 (12:26→20:37)
[2020-10-10 12:32] LABS: Hepatitis B Core IgM Nonreactive (Nonreactive)
[2020-10-10 12:33] LABS: Hepatitis A Antibody IgM Nonreactive (Nonreactive); Hepatitis C Virus Antibody Nonreactive (Nonreactive)
[2020-10-10] MEDS: amLODIPine 5 MG TABLET PO SCH (12:35)
[2020-10-10] MEDS: Ondansetron 4 MG/2 ML VIAL IVP PRN (16:11)
[2020-10-10] MEDS: Insulin DETEMIR 100 UNIT/ML X5UNITS SUBQ SCH (20:36)
[2020-10-11] MEDS: Insulin LISPRO 300 UNITS/3 ML VIAL SUBQ SCH ×7 (00:23→23:22)
[2020-10-11] MEDS: Calcium Acetate 667 MG CAPSULE PO SCH ×3 (07:59→17:56)
[2020-10-11 08:29] LABS: Basophils # 0.1 K/mcL (0.0-0.2); Basophils % 0.4 %; Eosinophils # 0.2 K/mcL (0.0-0.6); Eosinophils % 0.8 %; Hematocrit 33.1 % (37.5-50.1); Hemoglobin 10.5 g/dL (12.9-16.9); Immature Granulocytes % 1.6 % (0-4); Lymphocytes % 4.4 %; Mean Corpuscular HGB Conc 31.7 g/dL (31.6-35.5); Mean Corpuscular Volume 91.4 fL (83.0-100.0); Mean Platelet Volume 11.6 fL (9.4-12.4); Monocytes # 1.5 K/mcL (0.0-1.3); Monocytes % 6.9 %; Neutrophils # 18.8 K/mcL (1.6-8.9); Platelet Count 321 K/mcL (140-400); Red Blood Count 3.62 M/mcL (4.19-5.50); Red Cell Distribution Width 13.1 % (11.5-14.5); Segmented Neutrophils % 85.9 %; White Blood Count 21.8 K/mcL (4.3-11.1)
[2020-10-11 08:48] LABS: Calcium 8.2 mg/dL (8.6-10.3); Potassium 4.6 mEq/L (3.5-5.1)
[2020-10-11] MEDS: Metoprolol 100 MG TABLET PO SCH ×2 (09:29→20:20)
[2020-10-11] MEDS: Magnesium Oxide 400 MG TABLET PO SCH (09:30)
[2020-10-11] MEDS: DilTIAZem CD (24hr) 120 MG CAP.ER.24H PO SCH (09:30)
[2020-10-11] MEDS: lisinopriL 20 MG TABLET PO SCH ×2 (09:31→20:20)
[2020-10-11] MEDS: *HR* Glimepiride 2 MG TABLET PO SCH (09:31)
[2020-10-11] MEDS: amLODIPine 5 MG TABLET PO SCH (09:32)
[2020-10-11] MEDS: Pantoprazole 40 MG VIAL IVP SCH (09:32)
[2020-10-11] MEDS: Cefepime HCl 1,000 MG in Water for inj. (sterile) 10 ML IVP SCH (11:54)
[2020-10-11] MEDS: Dexmedetomidine HCl 400 MCG/100 ML MLS IVC SCH (12:38)
[2020-10-11] MEDS: Insulin DETEMIR 100 UNIT/ML X5UNITS SUBQ SCH (20:11)
[2020-10-12] MEDS: Insulin LISPRO 300 UNITS/3 ML VIAL SUBQ SCH ×5 (03:23→20:09)
[2020-10-12] MEDS: Ondansetron 4 MG/2 ML VIAL IVP PRN (03:50)
[2020-10-12 04:39] LABS: Basophils # 0.1 K/mcL (0.0-0.2); Basophils % 0.2 %; Eosinophils # 0.1 K/mcL (0.0-0.6); Eosinophils % 0.2 %; Hematocrit 32.4 % (37.5-50.1); Hemoglobin 10.7 g/dL (12.9-16.9); Immature Granulocytes % 1.2 % (0-4); Lymphocytes # 0.9 K/mcL (0.6-4.6); Lymphocytes % 3.6 %; Mean Corpuscular Hemoglobin 29.3 pg (28.0-33.3); Mean Corpuscular Volume 88.8 fL (83.0-100.0); Mean Platelet Volume 11.7 fL (9.4-12.4); Monocytes # 1.5 K/mcL (0.0-1.3); Neutrophils # 21.8 K/mcL (1.6-8.9); Platelet Count 362 K/mcL (140-400); Red Blood Count 3.65 M/mcL (4.19-5.50); Red Cell Distribution Width 12.8 % (11.5-14.5); Segmented Neutrophils % 88.8 %; White Blood Count 24.6 K/mcL (4.3-11.1)
[2020-10-12 04:52] LABS: Potassium 4.9 mEq/L (3.5-5.1)
[2020-10-12] MEDS: Dexmedetomidine HCl 400 MCG/100 ML MLS IVC SCH (06:17)
[2020-10-12] MEDS ORDERED: 0.9 % Sodium Chloride 250 ML IVC PRN (07:36)
[2020-10-12] MEDS ORDERED: *HR* Heparin 10,000 UNIT/10 ML VIAL IV PRN (07:36)
[2020-10-12] MEDS ORDERED: 0.9 % Sodium Chloride 1,000 ML PRIME SCH (07:45)
[2020-10-12] MEDS: Magnesium Oxide 400 MG TABLET PO SCH (08:13)
[2020-10-12] MEDS: Pantoprazole 40 MG VIAL IVP SCH (08:14)
[2020-10-12] MEDS: Calcium Acetate 667 MG CAPSULE PO SCH ×3 (08:14→16:17)
[2020-10-12] MEDS: *HR* Glimepiride 2 MG TABLET PO SCH (08:14)
[2020-10-12] MEDS ORDERED: Isovue-370 500 ML BOTTLE IVP ONE (10:38)
[2020-10-12] MEDS: amLODIPine 5 MG TABLET PO SCH (14:01)
[2020-10-12] MEDS: Metoprolol 100 MG TABLET PO SCH ×2 (14:01→20:10)
[2020-10-12] MEDS: DilTIAZem CD (24hr) 120 MG CAP.ER.24H PO SCH (14:01)
[2020-10-12] MEDS: lisinopriL 20 MG TABLET PO SCH ×2 (14:01→20:10)
[2020-10-12] MEDS: Cefepime HCl 1,000 MG in Water for inj. (sterile) 10 ML IVP SCH (14:02)
[2020-10-12] MEDS: Insulin DETEMIR 100 UNIT/ML X5UNITS SUBQ SCH (20:10)
[2020-10-12] MEDS: Apixaban 2.5 MG TABLET PO SCH (20:10)
[2020-10-13] MEDS: Insulin LISPRO 300 UNITS/3 ML VIAL SUBQ SCH ×5 (00:30→19:58)
[2020-10-13 01:51] LABS: Basophils % 0.2 %; Eosinophils % 0.1 %; Red Cell Distribution Width 13.2 % (11.5-14.5)
[2020-10-13 01:53] LABS: Basophils # 0.1 K/mcL (0.0-0.2); Hematocrit 30.1 % (37.5-50.1); Hemoglobin 9.9 g/dL (12.9-16.9); Immature Granulocytes % 1.9 % (0-4); Lymphocytes # 0.8 K/mcL (0.6-4.6); Lymphocytes % 2.6 %; Mean Corpuscular HGB Conc 32.9 g/dL (31.6-35.5); Mean Corpuscular Hemoglobin 29.2 pg (28.0-33.3); Mean Corpuscular Volume 88.8 fL (83.0-100.0); Mean Platelet Volume 11.2 fL (9.4-12.4); Monocytes # 1.8 K/mcL (0.0-1.3); Neutrophils # 26.5 K/mcL (1.6-8.9); Platelet Count 362 K/mcL (140-400); Red Blood Count 3.39 M/mcL (4.19-5.50); Segmented Neutrophils % 89.2 %; White Blood Count 29.7 K/mcL (4.3-11.1)
[2020-10-13 02:11] LABS: Calcium 7.9 mg/dL (8.6-10.3); Potassium 4.2 mEq/L (3.5-5.1)
[2020-10-13 02:48] LABS: Platelet Estimate Normal (Normal)
[2020-10-13] MEDS: Metoprolol 100 MG TABLET PO SCH ×2 (09:54→20:47)
[2020-10-13] MEDS: amLODIPine 5 MG TABLET PO SCH (09:55)
[2020-10-13] MEDS: Calcium Acetate 667 MG CAPSULE PO SCH ×3 (09:55→16:34)
[2020-10-13] MEDS: Apixaban 2.5 MG TABLET PO SCH ×2 (09:55→20:46)
[2020-10-13] MEDS: Magnesium Oxide 400 MG TABLET PO SCH (09:56)
[2020-10-13] MEDS: *HR* Glimepiride 2 MG TABLET PO SCH (09:56)
[2020-10-13] MEDS: DilTIAZem CD (24hr) 120 MG CAP.ER.24H PO SCH (09:56)
[2020-10-13] MEDS: lisinopriL 20 MG TABLET PO SCH ×2 (09:56→20:46)
[2020-10-13] MEDS: Pantoprazole 40 MG VIAL IVP SCH (09:57)
[2020-10-13] MEDS: Cefepime HCl 1,000 MG in Water for inj. (sterile) 10 ML IVP SCH (11:50)
[2020-10-13 14:11] LABS: Bacteria,Urine Few per hpf (None-Few); Bilirubin,Urine Negative (Negative); Blood,Urine Small (Negative); Clarity,Urine Clear (Clear); Color,Urine Light-Yellow (Yellow); Glucose,Urine (UA) Normal (Normal); Hyaline Casts,Urine Few per lpf (None Seen); Ketones,Urine Negative (Negative); Leukocyte Esterase,Urine Small (Negative); Mucus,Urine Few per lpf (None-Few); Nitrite,Urine Negative (Negative); PH,Urine 6.5 pH Units (5.0-8.0); Protein,Urine 200 mg/dL (Neg-Trace); Squamous Epithelial Cell,Urine Few per hpf (None-Few); Urobilinogen,Urine Normal (Normal)
[2020-10-13] MEDS: Simethicone 80 MG TAB.CHEW PO SCH ×2 (15:23→20:47)
[2020-10-13] MEDS: Insulin DETEMIR 100 UNIT/ML X5UNITS SUBQ SCH (20:47)
[2020-10-14 00:44] LABS: Basophils % 0.2 %; Hemoglobin 9.5 g/dL (12.9-16.9); Red Cell Distribution Width 13.2 % (11.5-14.5)
[2020-10-14 00:46] LABS: Basophils # 0.1 K/mcL (0.0-0.2); Eosinophils % 0.1 %; Hematocrit 28.9 % (37.5-50.1); Immature Granulocytes % 2.9 % (0-4); Lymphocytes % 3.2 %; Mean Corpuscular HGB Conc 32.9 g/dL (31.6-35.5); Mean Corpuscular Volume 88.1 fL (83.0-100.0); Mean Platelet Volume 11.3 fL (9.4-12.4); Monocytes % 6.5 %; Neutrophils # 26.8 K/mcL (1.6-8.9); Platelet Count 371 K/mcL (140-400); Red Blood Count 3.28 M/mcL (4.19-5.50); Segmented Neutrophils % 87.1 %
[2020-10-14 00:57] LABS: White Blood Count 30.8 K/mcL (4.3-11.1)
[2020-10-14 00:59] LABS: C-Reactive Protein > 300 mg/L (Less than 10); Lipase 29 Units/L (11-82); Uric Acid 7.6 mg/dL (2.3-7.6)
[2020-10-14 01:00] LABS: Calcium 7.9 mg/dL (8.6-10.3); Phosphorous 5.3 mg/dL (2.7-4.5); Potassium 3.8 mEq/L (3.5-5.1)
[2020-10-14 03:23] LABS: Large Platelets Present (Not Present); Platelet Estimate Normal (Normal)
[2020-10-14] MEDS ORDERED: 0.9 % Sodium Chloride 250 ML IVC PRN ×2 (05:30→12:38)
[2020-10-14] MEDS ORDERED: 0.9 % Sodium Chloride 1,000 ML PRIME SCH (05:30)
[2020-10-14] MEDS ORDERED: *HR* Heparin 10,000 UNIT/10 ML VIAL IV PRN (05:30)
[2020-10-14] MEDS: Insulin LISPRO 300 UNITS/3 ML VIAL SUBQ SCH ×4 (07:38→21:22)
[2020-10-14] MEDS: Metoprolol 100 MG TABLET PO SCH ×2 (09:25→19:53)
[2020-10-14] MEDS: *HR* Glimepiride 2 MG TABLET PO SCH (09:25)
[2020-10-14] MEDS: Magnesium Oxide 400 MG TABLET PO SCH (09:25)
[2020-10-14] MEDS: Apixaban 2.5 MG TABLET PO SCH ×2 (09:25→19:53)
[2020-10-14] MEDS: DilTIAZem CD (24hr) 120 MG CAP.ER.24H PO SCH (09:25)
[2020-10-14] MEDS: Simethicone 80 MG TAB.CHEW PO SCH ×3 (09:25→19:53)
[2020-10-14] MEDS: Calcium Acetate 667 MG CAPSULE PO SCH ×3 (09:26→15:34)
[2020-10-14] MEDS: Pantoprazole 40 MG VIAL IVP SCH (09:27)
[2020-10-14] MEDS: lisinopriL 20 MG TABLET PO SCH ×2 (09:27→19:53)
[2020-10-14] MEDS: amLODIPine 5 MG TABLET PO SCH (09:27)
[2020-10-14] MEDS ORDERED: *HR* Metoprolol 5 MG/5 ML VIAL IVP ONE (09:52)
[2020-10-14 10:36] LABS: Troponin I 0.14 ng/mL (< 0.04)
[2020-10-14 11:07] LABS: Albumin 2.7 g/dL (3.5-5.7); Albumin/Globulin Ratio 0.7 (1.1-2.2); Bilirubin,Direct 0.1 mg/dL (0.0-0.2); Bilirubin,Indirect 0.5 mg/dL (0.0-1.0); Bilirubin,Total 0.6 mg/dL (0.3-1.0); Globulin 3.7 g/dL (2.4-3.5); Total Protein 6.4 g/dL (6.4-8.9)
[2020-10-14] MEDS ORDERED: Albumin 25% 25gram/100mL 25 GM/100 ML IV.SOLN IVPB PRN (12:38)
[2020-10-14] MEDS: Cefepime HCl 1,000 MG in Water for inj. (sterile) 10 ML IVP SCH (13:10)
[2020-10-14] MEDS: MetroNIDAZOLE 500 MG/100 ML 500 MG/100 ML BAG IVPB SCH (15:34)
[2020-10-14] MEDS: Insulin DETEMIR 100 UNIT/ML X5UNITS SUBQ SCH (21:23)
[2020-10-15 01:13] LABS: Basophils # 0.1 K/mcL (0.0-0.2); Basophils % 0.3 %; Eosinophils # 0.1 K/mcL (0.0-0.6); Eosinophils % 0.3 %; Hematocrit 30.5 % (37.5-50.1); Lymphocytes # 1.2 K/mcL (0.6-4.6); Lymphocytes % 4.5 %; Mean Corpuscular HGB Conc 32.8 g/dL (31.6-35.5); Mean Corpuscular Hemoglobin 28.9 pg (28.0-33.3); Mean Corpuscular Volume 88.2 fL (83.0-100.0); Mean Platelet Volume 11.2 fL (9.4-12.4); Monocytes # 2.2 K/mcL (0.0-1.3); Monocytes % 8.2 %; Platelet Count 433 K/mcL (140-400); Red Blood Count 3.46 M/mcL (4.19-5.50); Red Cell Distribution Width 13.5 % (11.5-14.5); Segmented Neutrophils % 83.7 %; White Blood Count 26.3 K/mcL (4.3-11.1)
[2020-10-15 01:33] LABS: Albumin 2.5 g/dL (3.5-5.7); Albumin/Globulin Ratio 0.7 (1.1-2.2); Bilirubin,Total 0.4 mg/dL (0.3-1.0); Globulin 3.4 g/dL (2.4-3.5); Total Protein 5.9 g/dL (6.4-8.9)
[2020-10-15] MEDS: MetroNIDAZOLE 500 MG/100 ML 500 MG/100 ML BAG IVPB SCH ×3 (08:32→16:04)
[2020-10-15] MEDS: *HR* Glimepiride 2 MG TABLET PO SCH (08:37)
[2020-10-15] MEDS: DilTIAZem CD (24hr) 120 MG CAP.ER.24H PO SCH (08:37)
[2020-10-15] MEDS: Insulin LISPRO 300 UNITS/3 ML VIAL SUBQ SCH ×4 (08:38→20:38)
[2020-10-15] MEDS: Calcium Acetate 667 MG CAPSULE PO SCH ×3 (08:38→15:46)
[2020-10-15] MEDS: Simethicone 80 MG TAB.CHEW PO SCH (08:39)
[2020-10-15] MEDS: Apixaban 2.5 MG TABLET PO SCH (08:40)
[2020-10-15] MEDS: lisinopriL 20 MG TABLET PO SCH ×2 (08:40→20:39)
[2020-10-15] MEDS: Metoprolol 100 MG TABLET PO SCH (08:40)
[2020-10-15] MEDS: Magnesium Oxide 400 MG TABLET PO SCH (08:40)
[2020-10-15] MEDS: Pantoprazole 40 MG VIAL IVP SCH (08:41)
[2020-10-15] MEDS ORDERED: Lidocaine Jelly 11 ml Syringe TP ONE ×2 (11:03→12:19)
[2020-10-15] MEDS ORDERED: Tetracaine/Benzocaine/Butamben 1 SPRAY AEROSOL MM ONE (11:03)
[2020-10-15] MEDS: Cefepime HCl 1,000 MG in Water for inj. (sterile) 10 ML IVP SCH (12:14)
[2020-10-15] MEDS ORDERED: Perflutren Lipid Microsphere 1.3 ML in 0.9 % Sodium Chloride 8.7 ML IVP PRN ×2 (15:08→15:09)
[2020-10-15] MEDS: *HR* Metoprolol 5 MG/5 ML VIAL IVP SCH (20:32)
[2020-10-15] MEDS: Insulin DETEMIR 100 UNIT/ML X5UNITS SUBQ SCH (20:40)
[2020-10-15] MEDS ORDERED: *HR* Heparin 5,000 UNIT/ML VIAL IVP PRN ×2 (21:00)
[2020-10-15] MEDS: Heparin 25,000UNIT/250ML 1/2NS 25,000 UNIT/250 ML IV.SOLN IVC SCH (22:20)
[2020-10-16] MEDS: MetroNIDAZOLE 500 MG/100 ML 500 MG/100 ML BAG IVPB SCH ×4 (00:52→23:42)
[2020-10-16] MEDS: *HR* Metoprolol 5 MG/5 ML VIAL IVP SCH ×5 (02:50→21:26)
[2020-10-16] MEDS ORDERED: *HR* Metoprolol 5 MG/5 ML VIAL IVP ONE ×2 (04:35→04:36)
[2020-10-16] MEDS ORDERED: Morphine Sulfate 2 MG/ML SYRINGE IVP ONE (04:36)
[2020-10-16 04:57] LABS: Basophils # 0.1 K/mcL (0.0-0.2); Basophils % 0.5 %; Eosinophils # 0.2 K/mcL (0.0-0.6); Eosinophils % 0.8 %; Hematocrit 33.4 % (37.5-50.1); Hemoglobin 10.6 g/dL (12.9-16.9); Immature Granulocytes % 2.2 % (0-4); Lymphocytes # 1.2 K/mcL (0.6-4.6); Lymphocytes % 5.8 %; Mean Corpuscular HGB Conc 31.7 g/dL (31.6-35.5); Mean Corpuscular Hemoglobin 28.6 pg (28.0-33.3); Mean Platelet Volume 11.1 fL (9.4-12.4); Monocytes # 1.8 K/mcL (0.0-1.3); Monocytes % 8.7 %; Platelet Count 478 K/mcL (140-400); Red Blood Count 3.71 M/mcL (4.19-5.50); Red Cell Distribution Width 13.2 % (11.5-14.5); White Blood Count 20.7 K/mcL (4.3-11.1)
[2020-10-16 05:08] LABS: Calcium 8.4 mg/dL (8.6-10.3); Potassium 4.1 mEq/L (3.5-5.1)
[2020-10-16 05:26] LABS: Troponin I 0.05 ng/mL (< 0.04)
[2020-10-16] MEDS: Insulin LISPRO 300 UNITS/3 ML VIAL SUBQ SCH ×3 (06:36→18:58)
[2020-10-16] MEDS ORDERED: *HR* Heparin 10,000 UNIT/10 ML VIAL IV PRN (07:40)
[2020-10-16] MEDS ORDERED: 0.9 % Sodium Chloride 250 ML IVC PRN (07:40)
[2020-10-16] MEDS ORDERED: 0.9 % Sodium Chloride 1,000 ML PRIME SCH (07:45)
[2020-10-16] MEDS: Magnesium Oxide 400 MG TABLET PO SCH ×2 (08:24→09:00)
[2020-10-16] MEDS: Pantoprazole 40 MG VIAL IVP SCH (08:24)
[2020-10-16] MEDS: *HR* Glimepiride 2 MG TABLET PO SCH ×2 (08:24→09:00)
[2020-10-16] MEDS: Calcium Acetate 667 MG CAPSULE PO SCH ×4 (08:24→17:31)
[2020-10-16] MEDS: lisinopriL 20 MG TABLET PO SCH ×3 (08:25→21:25)
[2020-10-16] MEDS: DilTIAZem CD (24hr) 120 MG CAP.ER.24H PO SCH ×2 (08:25→09:00)
[2020-10-16] MEDS: Heparin 25,000UNIT/250ML 1/2NS 25,000 UNIT/250 ML IV.SOLN IVC SCH (13:19)
[2020-10-16] MEDS: DilTIAZem 50 MG/50 ML IV.SOLN IVC SCH ×2 (14:28→18:52)
[2020-10-16] MEDS: Cefepime HCl 1,000 MG in Water for inj. (sterile) 10 ML IVP SCH (14:45)
[2020-10-16] MEDS: Insulin DETEMIR 100 UNIT/ML X5UNITS SUBQ SCH (21:26)
[2020-10-17] MEDS: Insulin LISPRO 300 UNITS/3 ML VIAL SUBQ SCH ×4 (00:34→20:31)
[2020-10-17] MEDS: *HR* Metoprolol 5 MG/5 ML VIAL IVP SCH ×4 (01:48→20:52)
[2020-10-17 03:13] LABS: Basophils # 0.1 K/mcL (0.0-0.2); Basophils % 0.6 %; Eosinophils # 0.1 K/mcL (0.0-0.6); Eosinophils % 0.7 %; Hematocrit 30.3 % (37.5-50.1); Hemoglobin 9.7 g/dL (12.9-16.9); Immature Granulocytes % 4.1 % (0-4); Lymphocytes # 1.5 K/mcL (0.6-4.6); Lymphocytes % 7.7 %; Mean Corpuscular Hemoglobin 29.7 pg (28.0-33.3); Mean Corpuscular Volume 92.7 fL (83.0-100.0); Mean Platelet Volume 10.8 fL (9.4-12.4); Monocytes # 1.9 K/mcL (0.0-1.3); Monocytes % 9.7 %; Neutrophils # 15.3 K/mcL (1.6-8.9); Platelet Count 414 K/mcL (140-400); Red Blood Count 3.27 M/mcL (4.19-5.50); Red Cell Distribution Width 13.2 % (11.5-14.5); Segmented Neutrophils % 77.2 %; White Blood Count 19.8 K/mcL (4.3-11.1)
[2020-10-17 04:39] LABS: Calcium 7.8 mg/dL (8.6-10.3); Potassium 4.8 mEq/L (3.5-5.1)
[2020-10-17] MEDS: Heparin 25,000UNIT/250ML 1/2NS 25,000 UNIT/250 ML IV.SOLN IVC SCH (06:05)
[2020-10-17 08:22] LABS: ANA IgG by ELISA NONE DETECTED (None Detected)
[2020-10-17] MEDS: Calcium Acetate 667 MG CAPSULE PO SCH ×3 (09:25→15:25)
[2020-10-17] MEDS: Magnesium Oxide 400 MG TABLET PO SCH (09:25)
[2020-10-17] MEDS: DilTIAZem CD (24hr) 120 MG CAP.ER.24H PO SCH (09:25)
[2020-10-17] MEDS: *HR* Glimepiride 2 MG TABLET PO SCH (09:25)
[2020-10-17] MEDS: lisinopriL 20 MG TABLET PO SCH ×2 (09:26→20:52)
[2020-10-17] MEDS: Pantoprazole 40 MG VIAL IVP SCH (09:39)
[2020-10-17] MEDS: MetroNIDAZOLE 500 MG/100 ML 500 MG/100 ML BAG IVPB SCH ×2 (09:40→15:23)
[2020-10-17] MEDS: Cefepime HCl 1,000 MG in Water for inj. (sterile) 10 ML IVP SCH (13:31)
[2020-10-17] MEDS: Metoprolol 100 MG TABLET PO SCH (20:52)
[2020-10-17] MEDS: Insulin DETEMIR 100 UNIT/ML X5UNITS SUBQ SCH (20:52)
[2020-10-17] MEDS ORDERED: *HR* Dextrose 50 % in Water (Vial) 50 ML VIAL IVP PRN (23:54)
[2020-10-18] MEDS: Heparin 25,000UNIT/250ML 1/2NS 25,000 UNIT/250 ML IV.SOLN IVC SCH ×2 (00:10→16:37)
[2020-10-18] MEDS: MetroNIDAZOLE 500 MG/100 ML 500 MG/100 ML BAG IVPB SCH ×4 (00:26→23:14)
[2020-10-18] MEDS: Ondansetron 4 MG/2 ML VIAL IVP PRN (02:05)
[2020-10-18] MEDS: *HR* Metoprolol 5 MG/5 ML VIAL IVP SCH ×4 (02:05→21:14)
[2020-10-18 02:32] LABS: Basophils # 0.1 K/mcL (0.0-0.2); Basophils % 0.7 %; Eosinophils # 0.1 K/mcL (0.0-0.6); Eosinophils % 0.7 %; Hematocrit 32.9 % (37.5-50.1); Hemoglobin 10.3 g/dL (12.9-16.9); Immature Granulocytes % 5.7 % (0-4); Lymphocytes # 1.3 K/mcL (0.6-4.6); Lymphocytes % 6.7 %; Mean Corpuscular HGB Conc 31.3 g/dL (31.6-35.5); Mean Corpuscular Hemoglobin 28.9 pg (28.0-33.3); Mean Corpuscular Volume 92.2 fL (83.0-100.0); Mean Platelet Volume 10.9 fL (9.4-12.4); Monocytes % 10.3 %; Platelet Count 431 K/mcL (140-400); Red Blood Count 3.57 M/mcL (4.19-5.50); Red Cell Distribution Width 13.3 % (11.5-14.5); Segmented Neutrophils % 75.9 %; White Blood Count 19.4 K/mcL (4.3-11.1)
[2020-10-18 02:50] LABS: Potassium 4.3 mEq/L (3.5-5.1)
[2020-10-18 02:57] LABS: Neutrophils # 14.7 K/mcL (1.6-8.9)
[2020-10-18] MEDS: Calcium Acetate 667 MG CAPSULE PO SCH ×3 (07:30→16:39)
[2020-10-18] MEDS: DilTIAZem CD (24hr) 120 MG CAP.ER.24H PO SCH (07:30)
[2020-10-18] MEDS: *HR* Glimepiride 2 MG TABLET PO SCH (07:30)
[2020-10-18] MEDS: Insulin LISPRO 300 UNITS/3 ML VIAL SUBQ SCH ×4 (07:30→23:27)
[2020-10-18] MEDS: lisinopriL 20 MG TABLET PO SCH ×2 (07:31→19:12)
[2020-10-18] MEDS: Magnesium Oxide 400 MG TABLET PO SCH (07:31)
[2020-10-18] MEDS: Pantoprazole 40 MG VIAL IVP SCH (07:31)
[2020-10-18] MEDS: Metoprolol 100 MG TABLET PO SCH ×2 (07:31→19:12)
[2020-10-18] MEDS ORDERED: MOM Conc 10 ML UD.LIQ PO ONE ×2 (10:24→22:27)
[2020-10-18] MEDS: 0.9 % Sodium Chloride 1,000 ML IVC SCH (11:30)
[2020-10-18] MEDS: Cefepime HCl 1,000 MG in Water for inj. (sterile) 10 ML IVP SCH (11:30)
[2020-10-18] MEDS: Metoclopramide 10 MG/2 ML VIAL IVP SCH ×2 (16:20→23:14)
[2020-10-18] MEDS ORDERED: Insulin LISPRO 300 UNITS/3 ML VIAL SUBQ SCH (21:00)
[2020-10-18] MEDS: Insulin DETEMIR 100 UNIT/ML X5UNITS SUBQ SCH (21:15)
[2020-10-19] MEDS: *HR* Metoprolol 5 MG/5 ML VIAL IVP SCH ×4 (02:04→20:32)
[2020-10-19 06:33] LABS: Hematocrit 31.6 % (37.5-50.1); Hemoglobin 9.8 g/dL (12.9-16.9); Mean Corpuscular Volume 93.5 fL (83.0-100.0); Mean Platelet Volume 11.1 fL (9.4-12.4); Platelet Count 393 K/mcL (140-400); Red Blood Count 3.38 M/mcL (4.19-5.50); Red Cell Distribution Width 13.4 % (11.5-14.5); White Blood Count 20.1 K/mcL (4.3-11.1)
[2020-10-19 07:04] LABS: Calcium 8.3 mg/dL (8.6-10.3); Potassium 4.3 mEq/L (3.5-5.1)
[2020-10-19] MEDS ORDERED: 0.9 % Sodium Chloride 250 ML IVC PRN (07:10)
[2020-10-19] MEDS ORDERED: 0.9 % Sodium Chloride 1,000 ML PRIME SCH (07:15)
[2020-10-19] MEDS: 0.9 % Sodium Chloride 1,000 ML IVC SCH ×2 (07:18→18:34)
[2020-10-19] MEDS: Insulin LISPRO 300 UNITS/3 ML VIAL SUBQ SCH ×3 (07:19→19:23)
[2020-10-19 07:21] LABS: Eosinophils # 0.4 K/mcL (0.0-0.6); Lymphocytes # 0.4 K/mcL (0.6-4.6); Monocytes # 1.2 K/mcL (0.0-1.3); Neutrophils # 17.7 K/mcL (1.6-8.9)
[2020-10-19 07:22] LABS: Platelet Estimate Normal (Normal); Toxic Granulation Present (Not Present)
[2020-10-19] MEDS: Metoclopramide 10 MG/2 ML VIAL IVP SCH ×2 (07:40→17:36)
[2020-10-19] MEDS: Pantoprazole 40 MG VIAL IVP SCH (07:41)
[2020-10-19] MEDS: Ondansetron 4 MG/2 ML VIAL IVP PRN (07:41)
[2020-10-19] MEDS: MetroNIDAZOLE 500 MG/100 ML 500 MG/100 ML BAG IVPB SCH ×2 (07:41→17:37)
[2020-10-19] MEDS: Heparin 25,000UNIT/250ML 1/2NS 25,000 UNIT/250 ML IV.SOLN IVC SCH (08:20)
[2020-10-19] MEDS: Calcium Acetate 667 MG CAPSULE PO SCH ×3 (08:43→17:22)
[2020-10-19 11:18] LABS: Phosphorous 6.5 mg/dL (2.7-4.5)
[2020-10-19] MEDS ORDERED: *HR* Dextrose 50 % in Water (Vial) 50 ML VIAL IVP PRN (11:56)
[2020-10-19] MEDS ORDERED: Dextrose Gel 15 GM/37.5 ML TUBE PO PRN ×2 (11:56)
[2020-10-19] MEDS ORDERED: D5% in Water 1,000 ML IVC PRN (11:56)
[2020-10-19] MEDS ORDERED: Clinimix 5%-20% SOLUTION 2,000 ML with MVI, adult with vitamin K 10 ML, Sodium Acetat... IVC SCH (17:00)
[2020-10-19] MEDS: *HR* Glimepiride 2 MG TABLET PO SCH (17:17)
[2020-10-19] MEDS: Metoprolol 100 MG TABLET PO SCH ×2 (17:18→20:29)
[2020-10-19] MEDS: lisinopriL 20 MG TABLET PO SCH ×2 (17:18→20:29)
[2020-10-19] MEDS: Magnesium Oxide 400 MG TABLET PO SCH (17:18)
[2020-10-19] MEDS: DilTIAZem CD (24hr) 120 MG CAP.ER.24H PO SCH (17:18)
[2020-10-19] MEDS: Cefepime HCl 1,000 MG in Water for inj. (sterile) 10 ML IVP SCH (17:36)
[2020-10-19] MEDS: Insulin DETEMIR 100 UNIT/ML X5UNITS SUBQ SCH (20:29)
[2020-10-20] MEDS: 0.9 % Sodium Chloride 1,000 ML IVC SCH (00:41)
[2020-10-20] MEDS: MetroNIDAZOLE 500 MG/100 ML 500 MG/100 ML BAG IVPB SCH ×4 (00:42→23:30)
[2020-10-20] MEDS: Metoclopramide 10 MG/2 ML VIAL IVP SCH (00:43)
[2020-10-20] MEDS: Insulin LISPRO 300 UNITS/3 ML VIAL SUBQ SCH ×4 (00:44→17:46)
[2020-10-20 01:40] LABS: Hematocrit 29.7 % (37.5-50.1); Hemoglobin 9.1 g/dL (12.9-16.9); Mean Corpuscular HGB Conc 30.6 g/dL (31.6-35.5); Mean Corpuscular Hemoglobin 28.3 pg (28.0-33.3); Mean Corpuscular Volume 92.5 fL (83.0-100.0); Mean Platelet Volume 11.1 fL (9.4-12.4); Nucleated Red Blood Cells 0.1 /100 WBC (0); Platelet Count 344 K/mcL (140-400); Red Blood Count 3.21 M/mcL (4.19-5.50); Red Cell Distribution Width 13.3 % (11.5-14.5); White Blood Count 19.7 K/mcL (4.3-11.1)
[2020-10-20] MEDS: *HR* Metoprolol 5 MG/5 ML VIAL IVP SCH ×4 (01:55→20:19)
[2020-10-20 02:01] LABS: Eosinophils # 0.4 K/mcL (0.0-0.6); Lymphocytes # 1.6 K/mcL (0.6-4.6); Monocytes # 0.8 K/mcL (0.0-1.3); Neutrophils # 16.9 K/mcL (1.6-8.9); Platelet Estimate Normal (Normal); Toxic Granulation Present (Not Present)
[2020-10-20] MEDS: Heparin 25,000UNIT/250ML 1/2NS 25,000 UNIT/250 ML IV.SOLN IVC SCH ×2 (02:02→18:56)
[2020-10-20 02:20] LABS: Albumin 2.4 g/dL (3.5-5.7); Albumin/Globulin Ratio 0.7 (1.1-2.2); Bilirubin,Total 0.5 mg/dL (0.3-1.0); Calcium 7.6 mg/dL (8.6-10.3); Globulin 3.4 g/dL (2.4-3.5); Potassium 4.1 mEq/L (3.5-5.1); Total Protein 5.8 g/dL (6.4-8.9)
[2020-10-20 07:33] LABS: Magnesium 1.8 mg/dL (1.6-2.6); Phosphorous 4.4 mg/dL (2.7-4.5)
[2020-10-20] MEDS: Calcium Acetate 667 MG CAPSULE PO SCH ×3 (08:11→16:23)
[2020-10-20] MEDS: Metoprolol 100 MG TABLET PO SCH ×2 (08:12→23:25)
[2020-10-20] MEDS: DilTIAZem CD (24hr) 120 MG CAP.ER.24H PO SCH (08:12)
[2020-10-20] MEDS: Magnesium Oxide 400 MG TABLET PO SCH (08:12)
[2020-10-20] MEDS: Pantoprazole 40 MG VIAL IVP SCH (08:12)
[2020-10-20] MEDS: *HR* Glimepiride 2 MG TABLET PO SCH (08:12)
[2020-10-20] MEDS: lisinopriL 20 MG TABLET PO SCH ×2 (08:12→23:25)
[2020-10-20] MEDS: Ondansetron 4 MG/2 ML VIAL IVP PRN (08:23)
[2020-10-20] MEDS ORDERED: Morphine Sulfate 2 MG/ML SYRINGE IVP ONE (11:14)
[2020-10-20] MEDS: Cefepime HCl 1,000 MG in Water for inj. (sterile) 10 ML IVP SCH (11:48)
[2020-10-20] MEDS ORDERED: Lidocaine/EPI 1:100k 1% 50 ML VIAL ONE (13:01)
[2020-10-20] MEDS ORDERED: Heparin 1,000 UNITS/500 mL 500 ML ONE (13:01)
[2020-10-20] MEDS ORDERED: Clinimix E 5%-15% SOLUTION 2,000 ML with MVI, adult with vitamin K 10 ML IVC SCH (17:00)
[2020-10-20] MEDS ORDERED: *HR* FentaNYL (PF) 100 MCG/2 ML VIAL IVP PRN (17:21)
[2020-10-20] MEDS: Insulin DETEMIR 100 UNIT/ML X5UNITS SUBQ SCH (21:19)
[2020-10-21] MEDS: *HR* Metoprolol 5 MG/5 ML VIAL IVP SCH ×3 (01:25→20:42)
[2020-10-21] MEDS: Insulin LISPRO 300 UNITS/3 ML VIAL SUBQ SCH ×5 (01:31→23:51)
[2020-10-21 02:12] LABS: Basophils # 0.1 K/mcL (0.0-0.2); Basophils % 0.6 %; Eosinophils # 0.1 K/mcL (0.0-0.6); Eosinophils % 0.5 %; Hematocrit 30.4 % (37.5-50.1); Hemoglobin 9.4 g/dL (12.9-16.9); Lymphocytes # 1.6 K/mcL (0.6-4.6); Lymphocytes % 8.3 %; Mean Corpuscular HGB Conc 30.9 g/dL (31.6-35.5); Mean Corpuscular Hemoglobin 28.8 pg (28.0-33.3); Mean Corpuscular Volume 93.3 fL (83.0-100.0); Mean Platelet Volume 11.1 fL (9.4-12.4); Monocytes # 1.6 K/mcL (0.0-1.3); Monocytes % 8.6 %; Neutrophils # 14.3 K/mcL (1.6-8.9); Nucleated Red Blood Cells 0.1 /100 WBC (0); Platelet Count 341 K/mcL (140-400); Red Blood Count 3.26 M/mcL (4.19-5.50); Red Cell Distribution Width 13.4 % (11.5-14.5); White Blood Count 18.6 K/mcL (4.3-11.1)
[2020-10-21 02:38] LABS: Albumin 2.5 g/dL (3.5-5.7); Albumin/Globulin Ratio 0.7 (1.1-2.2); Bilirubin,Total 0.5 mg/dL (0.3-1.0); Globulin 3.6 g/dL (2.4-3.5); Potassium 3.6 mEq/L (3.5-5.1); Total Protein 6.1 g/dL (6.4-8.9)
[2020-10-21 02:39] LABS: Phosphorous 5.8 mg/dL (2.7-4.5)
[2020-10-21] MEDS: Calcium Acetate 667 MG CAPSULE PO SCH ×2 (08:10→11:19)
[2020-10-21] MEDS: Metoprolol 100 MG TABLET PO SCH (08:10)
[2020-10-21] MEDS: *HR* Glimepiride 2 MG TABLET PO SCH (08:10)
[2020-10-21] MEDS: DilTIAZem CD (24hr) 120 MG CAP.ER.24H PO SCH (08:10)
[2020-10-21] MEDS: Magnesium Oxide 400 MG TABLET PO SCH (08:10)
[2020-10-21] MEDS: lisinopriL 20 MG TABLET PO SCH (08:11)
[2020-10-21] MEDS: Pantoprazole 40 MG VIAL IVP SCH (08:25)
[2020-10-21] MEDS: MetroNIDAZOLE 500 MG/100 ML 500 MG/100 ML BAG IVPB SCH ×2 (08:25→23:54)
[2020-10-21] MEDS: 0.9 % Sodium Chloride 1,000 ML IVC SCH ×3 (08:41→20:40)
[2020-10-21] MEDS ORDERED: *HR* FentaNYL (PF) 100 MCG/2 ML VIAL ONE (11:39)
[2020-10-21] MEDS ORDERED: *HR* Propofol 200 MG/20 ML VIAL IVP ONE (11:39)
[2020-10-21] MEDS ORDERED: Lidocaine -MPF 2% 2 ML VIAL ONE (11:40)
[2020-10-21] MEDS ORDERED: *HR* Rocuronium Bromide 50 MG/5 ML VIAL ONE (11:40)
[2020-10-21] MEDS ORDERED: Ondansetron 4 MG/2 ML VIAL ONE (11:40)
[2020-10-21] MEDS ORDERED: Lidocaine HCL 4 ML Topical Solution (Laryng-O-Jet Kit Sterile Pak) TP ONE (11:40)
[2020-10-21] MEDS ORDERED: *HR* Succinylcholine 200 MG/10 ML VIAL IVP ONE (11:40)
[2020-10-21] MEDS ORDERED: Heparin 1,000 UNITS/500 mL 500 ML ONE (13:07)
[2020-10-21] MEDS ORDERED: Albumin Human 5% 25.0 GM/500 ML IV.SOLN ONE (13:09)
[2020-10-21] MEDS ORDERED: *HR* Phenylephrine 10 MG/ML VIAL ONE ×2 (13:11→15:58)
[2020-10-21] MEDS ORDERED: Clindamycin 600 MG/50 ML 600 MG/50 ML IV.SOLN IVPB ONE ×2 (13:48→14:00)
[2020-10-21 15:36] LABS: ABG Base Excess 5 mEq/L (-2 to 3); ABG Chloride 100 mEq/L (98-107); ABG Glucose 193 mg/dL (60-95); ABG HCO3 31 mEq/L (21-27); ABG Ionized Calcium 1.03 mmol/L (1.15-1.35); ABG Oxygen Saturation 99 % (95-98); ABG PCO2 48 mmHg (35-45); ABG PH 7.41 pH Units (7.32-7.45); ABG PO2 118 mmHg (85-104); ABG TCO2 32 mEq/L (20-26)
[2020-10-21] MEDS ORDERED: *HR* Midazolam HCl 2 MG/2 ML VIAL ONE ×2 (16:12→16:49)
[2020-10-21] MEDS ORDERED: FentaNYL (PF) 1,000 MCG/100 ML IV.SOLN IVC SCH (17:00)
[2020-10-21] MEDS ORDERED: Clinimix 5%-20% SOLUTION 2,000 ML with MVI, adult with vitamin K 10 ML, Sodium Acetat... IVC SCH ×2 (17:00→18:16)
[2020-10-21] MEDS: FentaNYL (PF) 1,000 MCG/100 ML IV.SOLN IVC SCH (17:20)
[2020-10-21] MEDS ORDERED: D5% in Water 1,000 ML IVC PRN (17:31)
[2020-10-21] MEDS ORDERED: Dextrose Gel 15 GM/37.5 ML TUBE PO PRN ×2 (17:31)
[2020-10-21] MEDS ORDERED: 0.9 % Sodium Chloride 250 ML IVC PRN (17:31)
[2020-10-21] MEDS ORDERED: *HR* Dextrose 50 % in Water (Vial) 50 ML VIAL IVP PRN (17:31)
[2020-10-21] MEDS ORDERED: D10% in Water 500 ML IVC PRN (17:31)
[2020-10-21] MEDS ORDERED: Naloxone 0.4 MG/ML INJ IVP PRN (17:31)
[2020-10-21] MEDS ORDERED: *HR* Heparin 5,000 UNIT/ML VIAL IVP PRN (17:31)
[2020-10-21] MEDS ORDERED: Artificial Tears SOLN 15 ML BOTTLE BOTH EYES PRN (18:28)
[2020-10-21] MEDS ORDERED: Fluconazole 200 MG/100 ML 200 MG/100 ML BAG IVPB SCH (18:30)
[2020-10-21] MEDS: Acetaminophen IV 1,000 MG/100 ML BAG IVPB SCH ×2 (18:57→23:55)
[2020-10-21] MEDS: Heparin 25,000UNIT/250ML 1/2NS 25,000 UNIT/250 ML IV.SOLN IVC SCH (20:32)
[2020-10-21] MEDS: Artificial Tears SOLN 15 ML BOTTLE BOTH EYES SCH ×2 (20:41→23:51)
[2020-10-21] MEDS: Insulin DETEMIR 100 UNIT/ML X5UNITS SUBQ SCH (20:42)
[2020-10-21] MEDS: Norepinephrine 4 MG/254 ML IV.SOLN IVC SCH (20:52)
[2020-10-21] MEDS: Chlorhexidine Rinse 15 ML MOUTHWASH MM SCH (20:53)
[2020-10-22] MEDS: FentaNYL (PF) 1,000 MCG/100 ML IV.SOLN IVC SCH (01:40)
[2020-10-22] MEDS: *HR* Metoprolol 5 MG/5 ML VIAL IVP SCH ×4 (02:34→20:57)
[2020-10-22 03:18] LABS: Nucleated Red Blood Cells 0.1 /100 WBC (0)
[2020-10-22] MEDS: Artificial Tears SOLN 15 ML BOTTLE BOTH EYES SCH ×2 (03:18→08:15)
[2020-10-22 03:19] LABS: Hematocrit 29.1 % (37.5-50.1); Hemoglobin 9.1 g/dL (12.9-16.9); Mean Corpuscular HGB Conc 31.3 g/dL (31.6-35.5); Mean Corpuscular Hemoglobin 29.4 pg (28.0-33.3); Mean Corpuscular Volume 94.2 fL (83.0-100.0); Mean Platelet Volume 11.1 fL (9.4-12.4); Platelet Count 295 K/mcL (140-400); Red Blood Count 3.09 M/mcL (4.19-5.50); Red Cell Distribution Width 13.7 % (11.5-14.5)
[2020-10-22] MEDS: Insulin LISPRO 300 UNITS/3 ML VIAL SUBQ SCH ×5 (03:21→20:57)
[2020-10-22 03:41] LABS: Calcium 7.3 mg/dL (8.6-10.3); Magnesium 1.6 mg/dL (1.6-2.6); Phosphorous 3.6 mg/dL (2.7-4.5)
[2020-10-22 03:45] LABS: White Blood Count 34.4 K/mcL (4.3-11.1)
[2020-10-22 03:47] LABS: ABG Base Excess 3 mEq/L (-2 to 3); ABG HCO3 28 mEq/L (21-27); ABG Oxygen Saturation 95 % (95-98); ABG PCO2 48 mmHg (35-45); ABG PH 7.38 pH Units (7.32-7.45); ABG PO2 78 mmHg (85-104); ABG TCO2 30 mEq/L (20-26); Blood Gas Modality AF; Blood Gas VT 500 cc
[2020-10-22 03:53] LABS: Lymphocytes # 2.8 K/mcL (0.6-4.6); Monocytes # 1.4 K/mcL (0.0-1.3); Neutrophils # 29.6 K/mcL (1.6-8.9); Platelet Estimate Normal (Normal); Toxic Granulation Present (Not Present); Toxic Vacuolation Present (Not Present)
[2020-10-22] MEDS: Calcium Gluconate 1gm/50mL 1 GM/50 ML BAG IVPB SCH ×2 (05:14→06:08)
[2020-10-22] MEDS: 0.9 % Sodium Chloride 1,000 ML IVC SCH ×2 (06:26→16:17)
[2020-10-22] MEDS: Acetaminophen IV 1,000 MG/100 ML BAG IVPB SCH ×3 (06:26→17:59)
[2020-10-22] MEDS: Pantoprazole 40 MG VIAL IVP SCH (08:14)
[2020-10-22] MEDS: Chlorhexidine Rinse 15 ML MOUTHWASH MM SCH (08:14)
[2020-10-22] MEDS: MetroNIDAZOLE 500 MG/100 ML 500 MG/100 ML BAG IVPB SCH ×2 (08:14→16:34)
[2020-10-22] MEDS: Dexmedetomidine HCl 400 MCG/100 ML MLS IVC SCH (09:13)
[2020-10-22] MEDS: Heparin 25,000UNIT/250ML 1/2NS 25,000 UNIT/250 ML IV.SOLN IVC SCH (11:49)
[2020-10-22] MEDS ORDERED: Cefepime HCl 1,000 MG in Water for inj. (sterile) 10 ML IVP SCH (12:00)
[2020-10-22] MEDS ORDERED: Clinimix E 5%-20% SOLUTION 2,000 ML with MVI, adult with vitamin K 10 ML IVC SCH (17:00)
[2020-10-22] MEDS: Cefepime HCl 1,000 MG in Water for inj. (sterile) 10 ML IVP SCH (17:19)
[2020-10-22] MEDS: Norepinephrine 4 MG/254 ML IV.SOLN IVC SCH (17:34)
[2020-10-22] MEDS: Insulin DETEMIR 100 UNIT/ML X5UNITS SUBQ SCH (21:01)
[2020-10-23] MEDS: MetroNIDAZOLE 500 MG/100 ML 500 MG/100 ML BAG IVPB SCH ×4 (00:10→23:40)
[2020-10-23] MEDS: Acetaminophen IV 1,000 MG/100 ML BAG IVPB SCH ×6 (00:10→23:40)
[2020-10-23] MEDS: 0.9 % Sodium Chloride 1,000 ML IVC SCH (00:12)
[2020-10-23] MEDS: Insulin LISPRO 300 UNITS/3 ML VIAL SUBQ SCH ×7 (00:15→23:45)
[2020-10-23] MEDS: *HR* Metoprolol 5 MG/5 ML VIAL IVP SCH ×3 (03:40→08:30)
[2020-10-23] MEDS: Heparin 25,000UNIT/250ML 1/2NS 25,000 UNIT/250 ML IV.SOLN IVC SCH ×2 (03:41→21:15)
[2020-10-23] MEDS: Dexmedetomidine HCl 400 MCG/100 ML MLS IVC SCH ×2 (03:42→20:10)
[2020-10-23 03:52] LABS: VBG Ionized Calcium 1.05 mmol/L (1.15-1.35)
[2020-10-23 04:05] LABS: Hematocrit 24.8 % (37.5-50.1); Mean Corpuscular Volume 94.3 fL (83.0-100.0); Mean Platelet Volume 11.7 fL (9.4-12.4); Red Blood Count 2.63 M/mcL (4.19-5.50); Red Cell Distribution Width 13.8 % (11.5-14.5)
[2020-10-23 04:06] LABS: Basophils # 0.1 K/mcL (0.0-0.2); Basophils % 0.3 %; Eosinophils % 0.1 %; Hemoglobin 7.6 g/dL (12.9-16.9); Immature Granulocytes % 3.5 % (0-4); Lymphocytes # 1.8 K/mcL (0.6-4.6); Lymphocytes % 5.9 %; Mean Corpuscular HGB Conc 30.6 g/dL (31.6-35.5); Mean Corpuscular Hemoglobin 28.9 pg (28.0-33.3); Monocytes # 1.9 K/mcL (0.0-1.3); Monocytes % 6.4 %; Neutrophils # 25.2 K/mcL (1.6-8.9); Nucleated Red Blood Cells 0.1 /100 WBC (0); Platelet Count 222 K/mcL (140-400); Segmented Neutrophils % 83.8 %
[2020-10-23 04:22] LABS: Calcium 7.4 mg/dL (8.6-10.3); Magnesium 1.9 mg/dL (1.6-2.6); Phosphorous 3.6 mg/dL (2.7-4.5); Potassium 3.9 mEq/L (3.5-5.1); White Blood Count 30.1 K/mcL (4.3-11.1)
[2020-10-23 05:01] LABS: Platelet Estimate Normal (Normal); Polychromasia 1+ (Not Present); Smudge Cells Present (Not Present); Toxic Granulation Present (Not Present)
[2020-10-23 05:02] LABS: Poikilocytosis 1+ (Not Present)
[2020-10-23] MEDS: Pantoprazole 40 MG VIAL IVP SCH (08:27)
[2020-10-23] MEDS ORDERED: Calcium Chloride 1,000 MG in 0.9 % Sodium Chloride 100 ML IVPB ONE (09:05)
[2020-10-23 09:31] LABS: Hematocrit 25.5 % (37.5-50.1); Hemoglobin 7.9 g/dL (12.9-16.9)
[2020-10-23] MEDS ORDERED: Clinimix E 5%-20% SOLUTION 2,000 ML with MVI, adult with vitamin K 10 ML IVC SCH (17:00)
[2020-10-23] MEDS: Cefepime HCl 1,000 MG in Water for inj. (sterile) 10 ML IVP SCH (17:19)
[2020-10-23] MEDS: Norepinephrine 4 MG/254 ML IV.SOLN IVC SCH (17:39)
[2020-10-23] MEDS: Insulin DETEMIR 100 UNIT/ML X5UNITS SUBQ SCH (20:09)
[2020-10-23] MEDS: Benzonatate 100 MG CAPSULE PO PRN (20:48)
[2020-10-23] MEDS ORDERED: Fluconazole 400 MG/200 ML 400 MG/200 ML BAG IVPB SCH (21:00)
[2020-10-24] MEDS: Insulin LISPRO 300 UNITS/3 ML VIAL SUBQ SCH ×6 (03:26→23:42)
[2020-10-24 03:37] LABS: Basophils % 0.2 %; Immature Granulocytes % 4.5 % (0-4); Nucleated Red Blood Cells 0.2 /100 WBC (0); Red Blood Count 2.68 M/mcL (4.19-5.50)
[2020-10-24 03:38] LABS: Basophils # 0.1 K/mcL (0.0-0.2); Eosinophils # 0.1 K/mcL (0.0-0.6); Eosinophils % 0.4 %; Hematocrit 25.2 % (37.5-50.1); Hemoglobin 7.9 g/dL (12.9-16.9); Lymphocytes % 6.5 %; Mean Corpuscular HGB Conc 31.3 g/dL (31.6-35.5); Mean Corpuscular Hemoglobin 29.5 pg (28.0-33.3); Mean Platelet Volume 11.4 fL (9.4-12.4); Monocytes % 6.3 %; Neutrophils # 25.8 K/mcL (1.6-8.9); Platelet Count 241 K/mcL (140-400); Red Cell Distribution Width 14.1 % (11.5-14.5); Segmented Neutrophils % 82.1 %
[2020-10-24 03:43] LABS: White Blood Count 31.4 K/mcL (4.3-11.1)
[2020-10-24 03:44] LABS: INR 1.4; Prothrombin Time 16.2 Seconds (9.4-12.1)
[2020-10-24 03:46] LABS: Activated Partial Thrombo Time 59.1 Seconds (26.0-36.0)
[2020-10-24] MEDS: Ondansetron 4 MG/2 ML VIAL IVP PRN ×2 (03:53→16:53)
[2020-10-24 03:56] LABS: Albumin 2.3 g/dL (3.5-5.7); Albumin/Globulin Ratio 0.7 (1.1-2.2); Bilirubin,Indirect 0.4 mg/dL (0.0-1.0); Bilirubin,Total 0.4 mg/dL (0.3-1.0); Calcium 7.7 mg/dL (8.6-10.3); Globulin 3.1 g/dL (2.4-3.5); Magnesium 1.9 mg/dL (1.6-2.6); Phosphorous 2.8 mg/dL (2.7-4.5); Potassium 3.7 mEq/L (3.5-5.1); Total Protein 5.4 g/dL (6.4-8.9)
[2020-10-24 04:17] LABS: Platelet Estimate Normal (Normal)
[2020-10-24] MEDS: Acetaminophen IV 1,000 MG/100 ML BAG IVPB SCH ×4 (05:25→23:31)
[2020-10-24] MEDS: Pantoprazole 40 MG VIAL IVP SCH (08:02)
[2020-10-24] MEDS: Benzonatate 100 MG CAPSULE PO PRN ×2 (08:02→16:53)
[2020-10-24] MEDS: MetroNIDAZOLE 500 MG/100 ML 500 MG/100 ML BAG IVPB SCH ×3 (08:14→23:31)
[2020-10-24] MEDS: Heparin 25,000UNIT/250ML 1/2NS 25,000 UNIT/250 ML IV.SOLN IVC SCH (14:35)
[2020-10-24] MEDS: Norepinephrine 4 MG/254 ML IV.SOLN IVC SCH (16:21)
[2020-10-24] MEDS: Dexmedetomidine HCl 400 MCG/100 ML MLS IVC SCH (16:21)
[2020-10-24] MEDS: Cefepime HCl 1,000 MG in Water for inj. (sterile) 10 ML IVP SCH (17:00)
[2020-10-24] MEDS ORDERED: Clinimix E 5%-20% SOLUTION 2,000 ML with MVI, adult with vitamin K 10 ML IVC SCH (17:00)
[2020-10-24] MEDS: Insulin DETEMIR 100 UNIT/ML X5UNITS SUBQ SCH (19:45)
[2020-10-25] MEDS: Insulin LISPRO 300 UNITS/3 ML VIAL SUBQ SCH ×5 (03:39→19:44)
[2020-10-25] MEDS: Ondansetron 4 MG/2 ML VIAL IVP PRN ×3 (03:39→17:53)
[2020-10-25 04:16] LABS: Calcium 7.7 mg/dL (8.6-10.3); Magnesium 1.9 mg/dL (1.6-2.6); Potassium 3.9 mEq/L (3.5-5.1)
[2020-10-25] MEDS: Acetaminophen IV 1,000 MG/100 ML BAG IVPB SCH ×3 (05:34→17:48)
[2020-10-25] MEDS: *HR* Heparin 5,000 UNIT/ML VIAL IVP PRN ×2 (05:34→12:34)
[2020-10-25 05:38] LABS: Basophils % 0.3 %; Mean Corpuscular HGB Conc 31.1 g/dL (31.6-35.5); Nucleated Red Blood Cells 0.1 /100 WBC (0)
[2020-10-25 05:40] LABS: Basophils # 0.1 K/mcL (0.0-0.2); Eosinophils % 0.5 %; Hematocrit 25.4 % (37.5-50.1); Hemoglobin 7.9 g/dL (12.9-16.9); Immature Granulocytes % 4.2 % (0-4); Lymphocytes # 1.8 K/mcL (0.6-4.6); Lymphocytes % 6.1 %; Mean Corpuscular Hemoglobin 29.5 pg (28.0-33.3); Mean Corpuscular Volume 94.8 fL (83.0-100.0); Mean Platelet Volume 11.7 fL (9.4-12.4); Monocytes # 2.2 K/mcL (0.0-1.3); Monocytes % 7.4 %; Neutrophils # 24.4 K/mcL (1.6-8.9); Platelet Count 263 K/mcL (140-400); Red Blood Count 2.68 M/mcL (4.19-5.50); Red Cell Distribution Width 14.2 % (11.5-14.5); Segmented Neutrophils % 81.5 %; White Blood Count 29.9 K/mcL (4.3-11.1)
[2020-10-25 05:45] LABS: Eosinophils # 0.2 K/mcL (0.0-0.6)
[2020-10-25 06:00] LABS: Platelet Estimate Normal (Normal)
[2020-10-25] MEDS: Benzonatate 100 MG CAPSULE PO PRN (08:10)
[2020-10-25] MEDS: MetroNIDAZOLE 500 MG/100 ML 500 MG/100 ML BAG IVPB SCH ×2 (08:10→15:22)
[2020-10-25] MEDS: Pantoprazole 40 MG VIAL IVP SCH (08:10)
[2020-10-25] MEDS: Heparin 25,000UNIT/250ML 1/2NS 25,000 UNIT/250 ML IV.SOLN IVC SCH ×3 (08:12→21:14)
[2020-10-25] MEDS: Dexmedetomidine HCl 400 MCG/100 ML MLS IVC SCH (12:27)
[2020-10-25] MEDS ORDERED: *HR* Heparin 5,000 UNIT/ML VIAL IVP PRN ×2 (12:43)
[2020-10-25] MEDS ORDERED: Clinimix E 5%-20% SOLUTION 2,000 ML with MVI, adult with vitamin K 10 ML IVC SCH ×3 (12:43→17:00)
[2020-10-25] MEDS ORDERED: Norepinephrine 4 MG/254 ML IV.SOLN IVC SCH (12:43)
[2020-10-25] MEDS ORDERED: Dexmedetomidine HCl 400 MCG/100 ML MLS IVC SCH (12:43)
[2020-10-25] MEDS ORDERED: *HR* Dextrose 50 % in Water (Vial) 50 ML VIAL IVP PRN (12:43)
[2020-10-25] MEDS ORDERED: D5% in Water 1,000 ML IVC PRN (12:43)
[2020-10-25] MEDS ORDERED: Dextrose Gel 15 GM/37.5 ML TUBE PO PRN ×2 (12:43)
[2020-10-25] MEDS ORDERED: Naloxone 0.4 MG/ML INJ IVP PRN (12:43)
[2020-10-25] MEDS ORDERED: D10% in Water 500 ML IVC PRN (12:43)
[2020-10-25] MEDS ORDERED: Benzonatate 100 MG CAPSULE PO PRN (12:43)
[2020-10-25] MEDS: Cefepime HCl 1,000 MG in Water for inj. (sterile) 10 ML IVP SCH (17:33)
[2020-10-25] MEDS: Insulin DETEMIR 100 UNIT/ML X5UNITS SUBQ SCH (20:12)
[2020-10-26] MEDS: Acetaminophen IV 1,000 MG/100 ML BAG IVPB SCH ×5 (00:29→23:25)
[2020-10-26] MEDS: Insulin LISPRO 300 UNITS/3 ML VIAL SUBQ SCH ×7 (00:31→23:44)
[2020-10-26] MEDS: MetroNIDAZOLE 500 MG/100 ML 500 MG/100 ML BAG IVPB SCH ×4 (00:39→23:23)
[2020-10-26] MEDS: Ondansetron 4 MG/2 ML VIAL IVP PRN ×2 (05:29→11:43)
[2020-10-26 06:17] LABS: Calcium 7.5 mg/dL (8.6-10.3); Magnesium 1.7 mg/dL (1.6-2.6); Phosphorous 3.8 mg/dL (2.7-4.5); Potassium 3.8 mEq/L (3.5-5.1)
[2020-10-26] MEDS ORDERED: 0.9 % Sodium Chloride 1,000 ML ONE (07:33)
[2020-10-26] MEDS ORDERED: *HR* Heparin 10,000 UNIT/10 ML VIAL IV PRN (07:47)
[2020-10-26] MEDS ORDERED: 0.9 % Sodium Chloride 250 ML IVC PRN (07:47)
[2020-10-26] MEDS ORDERED: 0.9 % Sodium Chloride 1,000 ML PRIME SCH (08:00)
[2020-10-26] MEDS: Pantoprazole 40 MG VIAL IVP SCH (08:09)
[2020-10-26 08:26] LABS: Nucleated Red Blood Cells 0.2 /100 WBC (0); Red Cell Distribution Width 14.4 % (11.5-14.5)
[2020-10-26 08:27] LABS: Hematocrit 24.2 % (37.5-50.1); Hemoglobin 7.6 g/dL (12.9-16.9); Mean Corpuscular HGB Conc 31.4 g/dL (31.6-35.5); Mean Corpuscular Hemoglobin 28.8 pg (28.0-33.3); Mean Corpuscular Volume 91.7 fL (83.0-100.0); Mean Platelet Volume 11.3 fL (9.4-12.4); Platelet Count 281 K/mcL (140-400); Red Blood Count 2.64 M/mcL (4.19-5.50); White Blood Count 25.6 K/mcL (4.3-11.1)
[2020-10-26 09:27] LABS: Lymphocytes # 0.5 K/mcL (0.6-4.6); Monocytes # 1.5 K/mcL (0.0-1.3); Neutrophils # 22.5 K/mcL (1.6-8.9)
[2020-10-26 09:28] LABS: Basophilic Stippling 1+ (Not Present); Dohle Bodies Present (Not Present); Smudge Cells Present (Not Present); Target Cells 1+ (Not Present); Toxic Granulation Present (Not Present)
[2020-10-26 09:29] LABS: Polychromasia 1+ (Not Present)
[2020-10-26] MEDS ORDERED: *HR* Metoprolol 5 MG/5 ML VIAL IVP ONE (11:19)
[2020-10-26] MEDS: Heparin 25,000UNIT/250ML 1/2NS 25,000 UNIT/250 ML IV.SOLN IVC SCH (11:46)
[2020-10-26] MEDS ORDERED: traZODone 50 MG TABLET PO PRN (12:10)
[2020-10-26] MEDS ORDERED: *HR* Promethazine 25 MG/ML VIAL IM ONE (16:37)
[2020-10-26] MEDS ORDERED: Clinimix E 5%-20% SOLUTION 2,000 ML with MVI, adult with vitamin K 10 ML IVC SCH (17:00)
[2020-10-26] MEDS: Cefepime HCl 1,000 MG in Water for inj. (sterile) 10 ML IVP SCH (17:13)
[2020-10-26] MEDS ORDERED: Haloperidol Lactate 5 MG/ML VIAL IM ONE (17:22)
[2020-10-26] MEDS: Fluconazole 400 MG/200 ML 400 MG/200 ML BAG IVPB SCH (20:06)
[2020-10-26] MEDS: Insulin DETEMIR 100 UNIT/ML X5UNITS SUBQ SCH (20:07)
[2020-10-26] MEDS: Gabapentin 100 MG CAPSULE PO SCH (21:56)
[2020-10-26] MEDS: *HR* Metoprolol 5 MG/5 ML VIAL IVP SCH (23:28)
[2020-10-27] MEDS: Heparin 25,000UNIT/250ML 1/2NS 25,000 UNIT/250 ML IV.SOLN IVC SCH ×2 (01:33→14:17)
[2020-10-27 02:43] LABS: White Blood Count 23.8 K/mcL (4.3-11.1)
[2020-10-27 02:44] LABS: Hematocrit 24.7 % (37.5-50.1); Hemoglobin 7.8 g/dL (12.9-16.9); Mean Corpuscular HGB Conc 31.6 g/dL (31.6-35.5); Mean Corpuscular Hemoglobin 28.8 pg (28.0-33.3); Mean Corpuscular Volume 91.1 fL (83.0-100.0); Mean Platelet Volume 11.2 fL (9.4-12.4); Nucleated Red Blood Cells 0.2 /100 WBC (0); Platelet Count 309 K/mcL (140-400); Red Blood Count 2.71 M/mcL (4.19-5.50); Red Cell Distribution Width 14.6 % (11.5-14.5)
[2020-10-27 02:55] LABS: Magnesium 1.6 mg/dL (1.6-2.6); Phosphorous 4.3 mg/dL (2.7-4.5)
[2020-10-27 02:56] LABS: Albumin 2.2 g/dL (3.5-5.7); Albumin/Globulin Ratio 0.7 (1.1-2.2); Bilirubin,Total 0.4 mg/dL (0.3-1.0); Calcium 7.4 mg/dL (8.6-10.3); Globulin 3.2 g/dL (2.4-3.5); Potassium 3.9 mEq/L (3.5-5.1); Total Protein 5.4 g/dL (6.4-8.9)
[2020-10-27 03:25] LABS: Lymphocytes # 1.4 K/mcL (0.6-4.6); Neutrophils # 20.9 K/mcL (1.6-8.9)
[2020-10-27 03:26] LABS: Platelet Estimate Normal (Normal); Toxic Granulation Present (Not Present)
[2020-10-27] MEDS: Insulin LISPRO 300 UNITS/3 ML VIAL SUBQ SCH ×6 (05:13→23:35)
[2020-10-27] MEDS: Acetaminophen IV 1,000 MG/100 ML BAG IVPB SCH ×4 (05:13→23:36)
[2020-10-27] MEDS: *HR* Metoprolol 5 MG/5 ML VIAL IVP SCH ×2 (05:13→08:26)
[2020-10-27] MEDS: Pantoprazole 40 MG VIAL IVP SCH (08:25)
[2020-10-27] MEDS: MetroNIDAZOLE 500 MG/100 ML 500 MG/100 ML BAG IVPB SCH ×3 (08:25→23:35)
[2020-10-27] MEDS: Gabapentin 100 MG CAPSULE PO SCH ×3 (08:26→19:37)
[2020-10-27] MEDS: Ondansetron 4 MG/2 ML VIAL IVP PRN (08:42)
[2020-10-27] MEDS ORDERED: Haloperidol Lactate 5 MG/ML VIAL IVP ONE (11:30)
[2020-10-27] MEDS: DilTIAZem 50 MG/50 ML IV.SOLN IVC SCH ×2 (13:43→19:05)
[2020-10-27] MEDS: Cefepime HCl 1,000 MG in Water for inj. (sterile) 10 ML IVP SCH (16:43)
[2020-10-27] MEDS ORDERED: Clinimix E 5%-20% SOLUTION 2,000 ML with MVI, adult with vitamin K 10 ML IVC SCH (17:00)
[2020-10-27] MEDS ORDERED: Prochlorperazine 10 MG/2 ML VIAL IVP ONE (17:30)
[2020-10-27] MEDS: Insulin DETEMIR 100 UNIT/ML X5UNITS SUBQ SCH (19:41)
[2020-10-27] MEDS: DilTIAZem 125 MG in 0.9 % Sodium Chloride 50 MG/100 ML IV.SOLN IVC SCH (23:36)
[2020-10-28] MEDS: Insulin LISPRO 300 UNITS/3 ML VIAL SUBQ SCH ×6 (04:15→23:24)
[2020-10-28 04:28] LABS: Basophils # 0.1 K/mcL (0.0-0.2); Basophils % 0.3 %; Eosinophils # 0.2 K/mcL (0.0-0.6); Eosinophils % 0.9 %; Hematocrit 22.4 % (37.5-50.1); Hemoglobin 7.1 g/dL (12.9-16.9); Immature Granulocytes % 9.3 % (0-4); Lymphocytes # 2.1 K/mcL (0.6-4.6); Lymphocytes % 10.5 %; Mean Corpuscular HGB Conc 31.7 g/dL (31.6-35.5); Mean Corpuscular Hemoglobin 29.5 pg (28.0-33.3); Mean Corpuscular Volume 92.9 fL (83.0-100.0); Mean Platelet Volume 11.1 fL (9.4-12.4); Monocytes # 1.9 K/mcL (0.0-1.3); Monocytes % 9.6 %; Nucleated Red Blood Cells 0.1 /100 WBC (0); Platelet Count 301 K/mcL (140-400); Red Blood Count 2.41 M/mcL (4.19-5.50); Red Cell Distribution Width 14.7 % (11.5-14.5); Segmented Neutrophils % 69.4 %; White Blood Count 20.1 K/mcL (4.3-11.1)
[2020-10-28 04:48] LABS: Albumin 2.1 g/dL (3.5-5.7); Albumin/Globulin Ratio 0.7 (1.1-2.2); Bilirubin,Total 0.4 mg/dL (0.3-1.0); Calcium 7.4 mg/dL (8.6-10.3); Globulin 3.1 g/dL (2.4-3.5); Magnesium 1.8 mg/dL (1.6-2.6); Phosphorous 4.6 mg/dL (2.7-4.5); Potassium 3.8 mEq/L (3.5-5.1); Total Protein 5.2 g/dL (6.4-8.9)
[2020-10-28 04:55] LABS: Toxic Granulation Present (Not Present)
[2020-10-28 04:56] LABS: Hypochromasia Present (Not Present); Platelet Estimate Normal (Normal)
[2020-10-28] MEDS: Heparin 25,000UNIT/250ML 1/2NS 25,000 UNIT/250 ML IV.SOLN IVC SCH (05:19)
[2020-10-28] MEDS: Acetaminophen IV 1,000 MG/100 ML BAG IVPB SCH ×4 (05:28→23:24)
[2020-10-28] MEDS: MetroNIDAZOLE 500 MG/100 ML 500 MG/100 ML BAG IVPB SCH ×3 (08:32→23:24)
[2020-10-28] MEDS: Gabapentin 100 MG CAPSULE PO SCH ×3 (08:33→20:06)
[2020-10-28] MEDS: Pantoprazole 40 MG VIAL IVP SCH (08:33)
[2020-10-28] MEDS ORDERED: *HR* Heparin 10,000 UNIT/10 ML VIAL IV PRN (09:36)
[2020-10-28] MEDS ORDERED: 0.9 % Sodium Chloride 250 ML IVC PRN (09:36)
[2020-10-28] MEDS ORDERED: 0.9 % Sodium Chloride 1,000 ML PRIME SCH (09:45)
[2020-10-28] MEDS ORDERED: Clinimix 5%-20% SOLUTION 2,000 ML with MVI, adult with vitamin K 10 ML, Sodium Chlori... IVC SCH (17:00)
[2020-10-28] MEDS ORDERED: Clinimix E 5%-20% SOLUTION 2,000 ML, Parenteral Amino Acid 10% 0 ML with MVI, adult wi... IVC SCH (17:00)
[2020-10-28] MEDS: Cefepime HCl 1,000 MG in Water for inj. (sterile) 10 ML IVP SCH (18:24)
[2020-10-28] MEDS: Apixaban 5 MG TABLET PO SCH (18:24)
[2020-10-28] MEDS: Metoprolol XL (24 HR) Succ 25 MG TAB.ER.24H PO SCH (18:26)
[2020-10-28 18:27] LABS: Adenovirus F 40/41 PCR Not detected (Not detect); Astrovirus PCR Not detected (Not detect); C.difficile Toxin A/B Gene PCR Not detected (Not detect); Campylobacter by PCR Not detected (Not detect); Cryptosporidium by PCR Not detected (Not detect); Cyclospora cayetanensis PCR Not detected (Not detect); E. coli O157 by PCR Not detected (Not detect); Entamoeba histolytica PCR Not detected (Not detect); Enteroaggregative E.coli(EAEC) Not detected (Not detect); Enteropathogenic E.coli(EPEC) Not detected (Not detect); Enterotoxigenic E.coli (ETEC) Not detected (Not detect); Giardia lamblia PCR Not detected (Not detect); Norovirus GI/GII PCR Not detected (Not detect); Plesiomonas shigelloides PCR Not detected (Not detect); Rotavirus A PCR Not detected (Not detect); Salmonella PCR Not detected (Not detect); Sapovirus PCR Not detected (Not detect); Shig/EnteroinvasiveE coli EIEC Not detected (Not detect); Shigalike tox-prod E coli STEC Not detected (Not detect); Vibrio PCR Not detected (Not detect); Vibrio cholerae PCR Not detected (Not detect); Yersinia enterocolitica PCR Not detected (Not detect)
[2020-10-28] MEDS: DilTIAZem 125 MG in 0.9 % Sodium Chloride 50 MG/100 ML IV.SOLN IVC SCH (18:28)
[2020-10-28] MEDS: Insulin DETEMIR 100 UNIT/ML X5UNITS SUBQ SCH (20:06)
[2020-10-28] MEDS: Fluconazole 400 MG/200 ML 400 MG/200 ML BAG IVPB SCH (20:06)
[2020-10-29 01:43] LABS: Basophils # 0.1 K/mcL (0.0-0.2); Basophils % 0.7 %; Eosinophils # 0.2 K/mcL (0.0-0.6); Eosinophils % 1.1 %; Hematocrit 21.2 % (37.5-50.1); Hemoglobin 6.7 g/dL (12.9-16.9); Immature Granulocytes % 10.5 % (0-4); Lymphocytes # 1.9 K/mcL (0.6-4.6); Lymphocytes % 10.7 %; Mean Corpuscular HGB Conc 31.6 g/dL (31.6-35.5); Mean Corpuscular Hemoglobin 29.4 pg (28.0-33.3); Mean Platelet Volume 11.8 fL (9.4-12.4); Monocytes # 1.5 K/mcL (0.0-1.3); Monocytes % 8.6 %; Neutrophils # 11.9 K/mcL (1.6-8.9); Nucleated Red Blood Cells 0.6 /100 WBC (0); Platelet Count 297 K/mcL (140-400); Red Blood Count 2.28 M/mcL (4.19-5.50); Red Cell Distribution Width 15.1 % (11.5-14.5); Segmented Neutrophils % 68.4 %; White Blood Count 17.4 K/mcL (4.3-11.1)
[2020-10-29 02:06] LABS: Albumin 2.2 g/dL (3.5-5.7); Albumin/Globulin Ratio 0.7 (1.1-2.2); Bilirubin,Total 0.3 mg/dL (0.3-1.0); Calcium 7.4 mg/dL (8.6-10.3); Magnesium 1.6 mg/dL (1.6-2.6); Phosphorous 3.1 mg/dL (2.7-4.5); Potassium 4.1 mEq/L (3.5-5.1); Total Protein 5.2 g/dL (6.4-8.9)
[2020-10-29 02:11] LABS: Hypochromasia Present (Not Present); Platelet Estimate Normal (Normal); Polychromasia 1+ (Not Present)
[2020-10-29 02:12] LABS: Toxic Granulation Present (Not Present)
[2020-10-29] MEDS: DilTIAZem 125 MG in 0.9 % Sodium Chloride 50 MG/100 ML IV.SOLN IVC SCH (03:54)
[2020-10-29] MEDS: Acetaminophen IV 1,000 MG/100 ML BAG IVPB SCH (05:06)
[2020-10-29] MEDS: Insulin LISPRO 300 UNITS/3 ML VIAL SUBQ SCH ×5 (05:07→21:30)
[2020-10-29] MEDS ORDERED: 0.9 % Sodium Chloride 250 ML IVC SCH (07:30)
[2020-10-29] MEDS: MetroNIDAZOLE 500 MG/100 ML 500 MG/100 ML BAG IVPB SCH (08:15)
[2020-10-29] MEDS: Metoprolol XL (24 HR) Succ 25 MG TAB.ER.24H PO SCH (08:16)
[2020-10-29] MEDS: Gabapentin 100 MG CAPSULE PO SCH ×3 (08:16→20:26)
[2020-10-29] MEDS: Pantoprazole 40 MG VIAL IVP SCH (08:16)
[2020-10-29] MEDS: Apixaban 5 MG TABLET PO SCH ×2 (08:17→20:26)
[2020-10-29] MEDS: calcium polycarbophiL 625 MG TABLET PO SCH ×2 (12:26→20:25)
[2020-10-29] MEDS: metroNIDAZOLE 500 MG TABLET PO SCH ×3 (12:26→20:25)
[2020-10-29] MEDS: *HR* OxyCODONE/APAP 5/325 TABLET PO PRN (14:35)
[2020-10-29] MEDS: Cefepime HCl 1,000 MG in Water for inj. (sterile) 10 ML IVP SCH (18:15)
[2020-10-29] MEDS: Insulin DETEMIR 100 UNIT/ML X5UNITS SUBQ SCH (21:29)
[2020-10-30] MEDS: Insulin LISPRO 300 UNITS/3 ML VIAL SUBQ SCH ×10 (00:15→22:39)
[2020-10-30 01:53] LABS: Hematocrit 23.7 % (37.5-50.1); Hemoglobin 7.4 g/dL (12.9-16.9); Mean Corpuscular HGB Conc 31.2 g/dL (31.6-35.5); Mean Corpuscular Hemoglobin 28.9 pg (28.0-33.3); Mean Corpuscular Volume 92.6 fL (83.0-100.0); Mean Platelet Volume 10.8 fL (9.4-12.4); Platelet Count 307 K/mcL (140-400); Red Blood Count 2.56 M/mcL (4.19-5.50); White Blood Count 16.6 K/mcL (4.3-11.1)
[2020-10-30 02:09] LABS: Calcium 7.6 mg/dL (8.6-10.3); Potassium 4.1 mEq/L (3.5-5.1)
[2020-10-30] MEDS: Metoprolol XL (24 HR) Succ 50 MG TAB.ER.24H PO SCH ×2 (07:49→09:09)
[2020-10-30] MEDS: Gabapentin 100 MG CAPSULE PO SCH ×3 (07:49→21:53)
[2020-10-30] MEDS: Apixaban 5 MG TABLET PO SCH ×2 (07:49→21:50)
[2020-10-30] MEDS: metroNIDAZOLE 500 MG TABLET PO SCH ×3 (07:49→21:50)
[2020-10-30] MEDS: calcium polycarbophiL 625 MG TABLET PO SCH (07:49)
[2020-10-30] MEDS: *HR* OxyCODONE/APAP 5/325 TABLET PO PRN (09:05)
[2020-10-30] MEDS ORDERED: Isovue-370 500 ML BOTTLE PO ONE (12:39)
[2020-10-30] MEDS: Cefepime HCl 1,000 MG in Water for inj. (sterile) 10 ML IVP SCH (17:10)
[2020-10-30] MEDS: Insulin DETEMIR 100 UNIT/ML X5UNITS SUBQ SCH (23:33)
[2020-10-30] MEDS: Fluconazole 400 MG/200 ML 400 MG/200 ML BAG IVPB SCH (23:34)
[2020-10-31 02:24] LABS: Hematocrit 25.5 % (37.5-50.1); Mean Corpuscular HGB Conc 31.4 g/dL (31.6-35.5); Mean Corpuscular Hemoglobin 28.9 pg (28.0-33.3); Mean Corpuscular Volume 92.1 fL (83.0-100.0); Platelet Count 366 K/mcL (140-400); Red Blood Count 2.77 M/mcL (4.19-5.50); Red Cell Distribution Width 15.3 % (11.5-14.5); White Blood Count 17.7 K/mcL (4.3-11.1)
[2020-10-31] MEDS: Insulin LISPRO 300 UNITS/3 ML VIAL SUBQ SCH ×8 (02:38→21:29)
[2020-10-31 02:43] LABS: Calcium 7.6 mg/dL (8.6-10.3); Potassium 4.7 mEq/L (3.5-5.1)
[2020-10-31] MEDS: calcium polycarbophiL 625 MG TABLET PO SCH ×2 (02:48→08:03)
[2020-10-31] MEDS: Ondansetron 4 MG/2 ML VIAL IVP PRN (06:13)
[2020-10-31] MEDS: metroNIDAZOLE 500 MG TABLET PO SCH ×3 (08:03→21:30)
[2020-10-31] MEDS: Metoprolol XL (24 HR) Succ 50 MG TAB.ER.24H PO SCH ×3 (08:03→21:30)
[2020-10-31] MEDS: Gabapentin 100 MG CAPSULE PO SCH ×3 (08:03→21:30)
[2020-10-31] MEDS: Apixaban 5 MG TABLET PO SCH ×2 (08:03→21:30)
[2020-10-31] MEDS: DilTIAZem 50 MG in 0.9 % Sodium Chloride 40 ML IVC SCH ×2 (08:27→16:07)
[2020-10-31] MEDS: *HR* OxyCODONE/APAP 5/325 TABLET PO PRN (12:49)
[2020-10-31] MEDS: Cefepime HCl 1,000 MG in Water for inj. (sterile) 10 ML IVP SCH (18:01)
[2020-10-31] MEDS: Insulin DETEMIR 100 UNIT/ML X5UNITS SUBQ SCH (21:33)
[2020-11-01] MEDS: calcium polycarbophiL 625 MG TABLET PO SCH ×3 (00:40→21:08)
[2020-11-01] MEDS: Insulin LISPRO 300 UNITS/3 ML VIAL SUBQ SCH ×8 (01:31→16:25)
[2020-11-01 02:23] LABS: Basophils # 0.1 K/mcL (0.0-0.2); Basophils % 0.4 %; Eosinophils # 0.2 K/mcL (0.0-0.6); Eosinophils % 1.1 %; Hematocrit 23.5 % (37.5-50.1); Hemoglobin 7.3 g/dL (12.9-16.9); Immature Granulocytes % 3.2 % (0-4); Lymphocytes # 1.6 K/mcL (0.6-4.6); Lymphocytes % 10.2 %; Mean Corpuscular HGB Conc 31.1 g/dL (31.6-35.5); Mean Corpuscular Hemoglobin 29.1 pg (28.0-33.3); Mean Corpuscular Volume 93.6 fL (83.0-100.0); Monocytes # 1.2 K/mcL (0.0-1.3); Monocytes % 7.6 %; Neutrophils # 12.2 K/mcL (1.6-8.9); Nucleated Red Blood Cells 0.1 /100 WBC (0); Platelet Count 337 K/mcL (140-400); Red Blood Count 2.51 M/mcL (4.19-5.50); Red Cell Distribution Width 15.5 % (11.5-14.5); Segmented Neutrophils % 77.5 %; White Blood Count 15.7 K/mcL (4.3-11.1)
[2020-11-01 02:37] LABS: Calcium 7.7 mg/dL (8.6-10.3); Potassium 4.5 mEq/L (3.5-5.1)
[2020-11-01] MEDS: DilTIAZem 50 MG in 0.9 % Sodium Chloride 40 ML IVC SCH (03:48)
[2020-11-01] MEDS: metroNIDAZOLE 500 MG TABLET PO SCH ×3 (09:27→21:08)
[2020-11-01] MEDS: Gabapentin 100 MG CAPSULE PO SCH ×3 (09:27→21:09)
[2020-11-01] MEDS: Metoprolol XL (24 HR) Succ 50 MG TAB.ER.24H PO SCH ×2 (09:27→21:09)
[2020-11-01] MEDS: Apixaban 5 MG TABLET PO SCH ×2 (09:28→21:09)
[2020-11-01] MEDS: Furosemide Oral Soln 40 MG/4 ML UDC PO SCH (11:28)
[2020-11-01] MEDS: Cefepime HCl 1,000 MG in Water for inj. (sterile) 10 ML IVP SCH (17:47)
[2020-11-01] MEDS ORDERED: Insulin LISPRO 300 UNITS/3 ML VIAL SUBQ SCH ×3 (22:45)
[2020-11-01] MEDS: Insulin DETEMIR 100 UNIT/ML X5UNITS SUBQ SCH (23:14)
[2020-11-02 07:26] LABS: Basophils # 0.1 K/mcL (0.0-0.2); Basophils % 0.4 %; Eosinophils # 0.2 K/mcL (0.0-0.6); Eosinophils % 1.3 %; Hematocrit 25.4 % (37.5-50.1); Hemoglobin 7.6 g/dL (12.9-16.9); Immature Granulocytes % 2.1 % (0-4); Lymphocytes # 1.5 K/mcL (0.6-4.6); Lymphocytes % 8.8 %; Mean Corpuscular HGB Conc 29.9 g/dL (31.6-35.5); Mean Corpuscular Hemoglobin 28.4 pg (28.0-33.3); Mean Corpuscular Volume 94.8 fL (83.0-100.0); Mean Platelet Volume 10.9 fL (9.4-12.4); Monocytes # 1.1 K/mcL (0.0-1.3); Monocytes % 6.6 %; Neutrophils # 13.6 K/mcL (1.6-8.9); Platelet Count 390 K/mcL (140-400); Red Blood Count 2.68 M/mcL (4.19-5.50); Red Cell Distribution Width 15.5 % (11.5-14.5); Segmented Neutrophils % 80.8 %; White Blood Count 16.8 K/mcL (4.3-11.1)
[2020-11-02 07:30] LABS: % Iron Saturation 10 % (20-55); Iron 15 mcg/dL (65-175); Transferrin 108 mg/dL (203-362)
[2020-11-02] MEDS ORDERED: Insulin LISPRO 300 UNITS/3 ML VIAL SUBQ SCH (07:30)
[2020-11-02 07:31] LABS: Calcium 7.9 mg/dL (8.6-10.3); INR 1.7; Potassium 4.7 mEq/L (3.5-5.1); Prothrombin Time 19.8 Seconds (9.4-12.1)
[2020-11-02] MEDS: Furosemide Oral Soln 40 MG/4 ML UDC PO SCH (08:30)
[2020-11-02] MEDS: Apixaban 5 MG TABLET PO SCH ×2 (08:30→21:39)
[2020-11-02] MEDS: Metoprolol XL (24 HR) Succ 50 MG TAB.ER.24H PO SCH ×2 (08:30→21:39)
[2020-11-02] MEDS: Gabapentin 100 MG CAPSULE PO SCH ×3 (08:30→21:39)
[2020-11-02] MEDS: metroNIDAZOLE 500 MG TABLET PO SCH ×3 (08:30→21:39)
[2020-11-02] MEDS: calcium polycarbophiL 625 MG TABLET PO SCH ×2 (08:30→21:39)
[2020-11-02] MEDS: Insulin LISPRO 300 UNITS/3 ML VIAL SUBQ SCH ×3 (08:35→17:17)
[2020-11-02] MEDS: Cefepime HCl 2,000 MG in Water for inj. (sterile) 20 ML IVP SCH (13:05)
[2020-11-02] MEDS: Fluconazole 100 MG TABLET PO SCH (18:35)
[2020-11-02] MEDS ORDERED: Fluconazole 200 MG/100 ML 200 MG/100 ML BAG IVPB SCH ×2 (21:00)
[2020-11-02] MEDS: Insulin DETEMIR 100 UNIT/ML X5UNITS SUBQ SCH (21:47)
[2020-11-02] MEDS: Artificial Tears SOLN 15 ML BOTTLE BOTH EYES SCH (21:57)
[2020-11-03 06:03] LABS: Basophils # 0.1 K/mcL (0.0-0.2); Basophils % 0.6 %; Eosinophils # 0.3 K/mcL (0.0-0.6); Eosinophils % 2.6 %; Hemoglobin 7.8 g/dL (12.9-16.9); Immature Granulocytes % 1.7 % (0-4); Lymphocytes # 1.6 K/mcL (0.6-4.6); Lymphocytes % 12.1 %; Mean Corpuscular Hemoglobin 28.4 pg (28.0-33.3); Mean Corpuscular Volume 94.5 fL (83.0-100.0); Mean Platelet Volume 10.8 fL (9.4-12.4); Monocytes % 7.4 %; Neutrophils # 9.8 K/mcL (1.6-8.9); Platelet Count 411 K/mcL (140-400); Red Blood Count 2.75 M/mcL (4.19-5.50); Red Cell Distribution Width 15.5 % (11.5-14.5); Segmented Neutrophils % 75.6 %; White Blood Count 12.9 K/mcL (4.3-11.1)
[2020-11-03 06:23] LABS: Calcium 7.9 mg/dL (8.6-10.3); Potassium 4.1 mEq/L (3.5-5.1)
[2020-11-03] MEDS ORDERED: Fluconazole 100 MG TABLET PO SCH (09:00)
[2020-11-03] MEDS: Insulin LISPRO 300 UNITS/3 ML VIAL SUBQ SCH ×3 (09:46→16:48)
[2020-11-03] MEDS: metroNIDAZOLE 500 MG TABLET PO SCH ×3 (09:47→21:18)
[2020-11-03] MEDS: Furosemide Oral Soln 40 MG/4 ML UDC PO SCH (09:47)
[2020-11-03] MEDS: Apixaban 5 MG TABLET PO SCH ×2 (09:47→21:15)
[2020-11-03] MEDS: Fluconazole 100 MG TABLET PO SCH (09:47)
[2020-11-03] MEDS: calcium polycarbophiL 625 MG TABLET PO SCH ×2 (09:47→21:15)
[2020-11-03] MEDS: Metoprolol XL (24 HR) Succ 50 MG TAB.ER.24H PO SCH ×2 (09:48→21:15)
[2020-11-03] MEDS: Gabapentin 100 MG CAPSULE PO SCH ×3 (09:48→21:15)
[2020-11-03] MEDS: Cefepime HCl 2,000 MG in Water for inj. (sterile) 20 ML IVP SCH (12:16)
[2020-11-03] MEDS: *HR* OxyCODONE/APAP 5/325 TABLET PO PRN ×2 (15:05→21:15)
[2020-11-03] MEDS: DilTIAZem CD (24hr) 120 MG CAP.ER.24H PO SCH (16:48)
[2020-11-03] MEDS: Artificial Tears SOLN 15 ML BOTTLE BOTH EYES SCH (21:18)
[2020-11-03] MEDS: Insulin DETEMIR 100 UNIT/ML X5UNITS SUBQ SCH (21:20)
[2020-11-04 01:30] LABS: Hematocrit 25.9 % (37.5-50.1); Hemoglobin 7.8 g/dL (12.9-16.9); Mean Corpuscular HGB Conc 30.1 g/dL (31.6-35.5); Mean Corpuscular Hemoglobin 28.2 pg (28.0-33.3); Mean Corpuscular Volume 93.5 fL (83.0-100.0); Mean Platelet Volume 10.9 fL (9.4-12.4); Platelet Count 367 K/mcL (140-400); Red Blood Count 2.77 M/mcL (4.19-5.50); Red Cell Distribution Width 15.3 % (11.5-14.5); White Blood Count 10.6 K/mcL (4.3-11.1)
[2020-11-04 01:54] LABS: Calcium 7.7 mg/dL (8.6-10.3); Potassium 4.5 mEq/L (3.5-5.1)
[2020-11-04] MEDS: Insulin LISPRO 300 UNITS/3 ML VIAL SUBQ SCH ×2 (07:13→12:21)
[2020-11-04] MEDS: calcium polycarbophiL 625 MG TABLET PO SCH (07:58)
[2020-11-04] MEDS: Apixaban 5 MG TABLET PO SCH (07:58)
[2020-11-04] MEDS: Fluconazole 100 MG TABLET PO SCH (07:58)
[2020-11-04] MEDS: Gabapentin 100 MG CAPSULE PO SCH (07:58)
[2020-11-04] MEDS: DilTIAZem CD (24hr) 120 MG CAP.ER.24H PO SCH (07:58)
[2020-11-04] MEDS: metroNIDAZOLE 500 MG TABLET PO SCH (07:58)
[2020-11-04] MEDS: Furosemide Oral Soln 40 MG/4 ML UDC PO SCH (07:58)
[2020-11-04] MEDS: Metoprolol XL (24 HR) Succ 50 MG TAB.ER.24H PO SCH (07:58)
[2020-11-04 11:46] LABS: Adenovirus Not Detected (Not Detect); Bordetella Pertussis Not Detected (Not Detect); Chlamydophila pneumoniae Not Detected (Not Detect); Coronavirus 229E Not Detected (Not Detect); Coronavirus HKU1 Not Detected (Not Detect); Coronavirus NL63 Not Detected (Not Detect); Coronavirus OC43 Not Detected (Not Detect); Human Metapneumovirus Not Detected (Not Detect); Human Rhinovirus/Enterovirus Not Detected (Not Detect); Influenza A Subtype 2009 H1 Not Detected (Not Detect); Influenza B Not Detected (Not Detect); Mycoplasma pneumoniae Not Detected (Not Detect); Parainfluenza Virus 1 Not Detected (Not Detect); Parainfluenza Virus 2 Not Detected (Not Detect); Parainfluenza Virus 3 Not Detected (Not Detect); Parainfluenza Virus 4 Not Detected (Not Detect); Respiratory Syncytial Virus Not Detected (Not Detect); SARS-CoV-2 Not Detected (Not Detect)
[2020-11-04 12:00] VITALS: BP 130/69
[2020-11-04] MEDS: Cefepime HCl 2,000 MG in Water for inj. (sterile) 20 ML IVP SCH (12:21)
== END 2020-11-04 14:34 | DRG 268 ==
LOC: SAMDAY 06:01 → SUATTDRO 12:38 → ICNU 12:38 → 2NNU 10-07 17:26 → ICNU 10-21 17:46 → 2NNU 10-25 16:33 → 2ANU 10-30 19:22
PROVIDERS: ADMIT Surgery; ATTEND Internal Medicine
PROC: IRPERMA (2020-10-08 11:00)